=== PATIENT | female | born 1945 | race Two or more races ===

== ENCOUNTER 2017-02-10 16:38 | Inpatient (IN) | payer MEDICARE, MEDICAID ==
[~2017-02-10] VITALS: Ht 167.6 cm; Wt 54.0 kg
[~2017-02-10 16:38] MED LIST: ACET-868 PO; ACET325T53 PO; ALBU2.5V38 IH; AMAN100T PO; CITA10TA17 PO; CRAN425C PO; DIVA125C PO; HALO1TAB5 PO; HYDR-552 PO; LORA0.5T PO; MAG30ORA PO; MAGN400O6 PO; MELA3TAB11 PO; MIDO5TAB PO; MULT1TAB11 PO; NA P133E RC
--- NOTE | 2017-02-10 17:00 | NUR ---
PT BIB PA FOR ABNORMAL LABS SENT BY PMD. NAD NOTED. VSS. PULSE OX 90% ON ROOM AIR; PLACED ON 2L VIA NC. NAD NOTED. AT BASELINE LOC PER REPORT. WITHDRAWS FROM PAIN. SKIN WARM NONDIAPHORETIC. IN ER BED 09 ON MONITOR.
[2017-02-10 17:45] LABS: BASOPHILS # (AUTO) 0.5 /CMM (0.0-0.2); BASOPHILS % (AUTO) 1.9 % (0.0-2.0); EOSINOPHILS # (AUTO) 0.1 /CMM (0.0-0.7); EOSINOPHILS % (AUTO) 0.5 % (0.0-6.0); HEMATOCRIT 51 % (33-45); HEMOGLOBIN 15.6 g/dL (11.5-14.8); LYMPHOCYTES # (AUTO) 2.7 /CMM (0.8-4.8); MEAN CORPUSCULAR HEMOGLOBIN 31 PG (26.0-33.0); MEAN CORPUSCULAR HGB CONC 31 g/dl (31.0-36.0); MEAN CORPUSCULAR VOLUME 102 fL (82-100); MONOCYTES # (AUTO) 1.3 /CMM (0.1-1.30); MONOCYTES % (AUTO) 5.6 % (2.0-12.0); NEUTROPHILS # (AUTO) 19.5 /CMM (1.8-8.9); PLATELET COUNT (AUTO) 113 /CMM (150-450); RDW COEFFICIENT OF VARIATION 13.5 (11.5-15.0); RED BLOOD CELL COUNT(AUTO) 4.97 MIL/uL (4.0-5.2); WHITE BLOOD COUNT (AUTO) 24.1 K/uL (4.3-11.0)
[2017-02-10 17:56] LABS: MAGNESIUM 3.3 mg/dL (1.8-2.4)
[2017-02-10 17:59] LABS: INR 1.22 (0.87-1.13); PROTHROMBIN TIME 12.8 SECS (9.5-12.7)
[2017-02-10] MEDS ORDERED: PIPERACILLIN /TAZOBACTAM 2.25 G in IV D5W 50 ML IV ONE (18:00)
[2017-02-10] MEDS ORDERED: VANCOMYCIN 1 GM in IV D5W 250 ML IV ONE (18:00)
[2017-02-10 18:03] LABS: ALANINE AMINOTRANSFERASE 26 U/L (12-78); ALBUMIN 3.1 g/dL (3.4-5.0); ALKALINE PHOSPHATASE 141 U/L (46-116); ASPARTATE AMINOTRANSFERASE 17 U/L (15-37); BILIRUBIN,DIRECT 0.1 mg/dL (0.0-0.2); BILIRUBIN,TOTAL 0.2 mg/dL (0.2-1.0); CALCIUM, SERUM 9.8 mg/dL (8.5-10.1); CARBON DIOXIDE 32 mmol/L (21-32); GFR 11 mL/min (>60); GLUCOSE 168 mg/dL (74-106); POTASSIUM 4.3 mmol/L (3.5-5.1); TOTAL PROTEIN, SERUM 8.6 g/dL (6.4-8.2)
--- NOTE | 2017-02-10 18:03 | NUR ---
CALLED NURSING SUP. FOR TELE BED
[2017-02-10 18:04] LABS: TROPONIN I 0.046 ng/mL (0.00-0.056)
[2017-02-10] MEDS ORDERED: IV SET PRIMARY PUMP SET 1 EA INFUS.SET MC ONE ×2 (18:09→21:37)
[2017-02-10] MEDS ORDERED: PIPERACILLIN /TAZOBACTAM 3.375 G VIAL IV ONE (18:09)
[2017-02-10] MEDS ORDERED: VANCOMYCIN 1 GM VIAL ONE (18:10)
[2017-02-10 18:18] LABS: SODIUM SERUM 175 mmol/L (136-145)
[2017-02-10 18:20] LABS: CHLORIDE 134 mmol/L (98-107); UREA NITROGEN, BLOOD 120 mg/dL (7-18)
[2017-02-10 18:25] LABS: APPEARANCE,URINE Slightly Cloudy (CLEAR); BILIRUBIN,URINE Negative (NEGATIVE); BLOOD, URINE Trace-lysed Ery/uL (NEGATIVE); COLOR,URINE Yellow (YELLOW); KETONES,URINE Negative (NEGATIVE); LEUKOCYTE ESTERASE ,URINE Trace (NEGATIVE); NITRITE, URINE Negative (NEGATIVE); PROTEIN,URINE 30 mg/dl (NEGATIVE); UGLUCOSE Negative (NEGATIVE); UROBILINOGEN,URINE 0.2 EU/dL (0.2)
[2017-02-10] MEDS ORDERED: IV NS 0.9% 1,000 ML BAG IV ONE (18:30)
--- NOTE | 2017-02-10 18:33 | NUR ---
GIORGI PAGED, TOWNSHIP SUPERVISOR
[2017-02-10 18:41] LABS: ADD URINE CULTURE YES; BACTERIA,URINE Many /HPF (None Seen); SQUAMOUS EPITHELIAL CELL,UR Moderate /HPF (None Seen); URINE AMORPHOUS URATE Many /HPF (None Seen)
--- NOTE | 2017-02-10 18:44 | NUR ---
REPORT CALLED TO SANJAY FOR ADMISSION
--- NOTE | 2017-02-10 18:47 | NUR ---
[facility] REPAGED
--- NOTE | 2017-02-10 18:57 | NUR ---
panel on-call paged
[2017-02-10 19:02] LABS: BAND % (MANUAL) 3 % (0.0-5.0); LYMPHOCYTES % (MANUAL) 13 % (16-48); NEUTROPHILS % (MANUAL) 78 (42-76)
[2017-02-10 19:03] LABS: BASOPHILS % (MANUAL) 0 % (0.0-2.0); EOSINOPHILS % (MANUAL) 0 % (0-4); MONOCYTES % (MANUAL) 6 % (0-11.0); PLATELET ESTIMATE DECREASED
[2017-02-10] MEDS ORDERED: IV SET PRIMARY 1 EA INFUS.SET MC ONE (19:18)
[2017-02-10] MEDS ORDERED: IV NS 0.9% 2,000 ML ONE (19:18)
[2017-02-10] MEDS ORDERED: IV NS 0.9% 1,000 ML IV PRN (20:10)
--- NOTE | 2017-02-10 20:12 | NUR ---
PT TRANSPORTED TO 323-2 IN STABLE CONDITION VIA ACLS PROTOCOL WITH IVF BOLUS ONGOING. NAD NOTED.
[2017-02-10] MEDS ORDERED: Z GUARD REMEDY 2 OZ OINT TP PRN (20:30)
[2017-02-10] MEDS ORDERED: NA PHOS,M-B/NA PHOS,DI-BA 1 EA ENEMA RC PRN (20:30)
[2017-02-10] MEDS ORDERED: IV NS 0.9% 500 ML IV ONE (20:30)
[2017-02-10] MEDS ORDERED: HYDROCODONE/APAP 5/325MG 1 EACH TABLET PO PRN (20:30)
[2017-02-10] MEDS ORDERED: MAGNESIUM HYDROXIDE 30 ML UDC PO PRN ×2 (20:30)
[2017-02-10] MEDS ORDERED: LORAZEPAM 0.5 MG TABLET PO PRN (20:30)
[2017-02-10] MEDS ORDERED: MAG HYDROX/AL HYDROX/SIMETH 30 ML UDC PO PRN ×2 (20:30)
[2017-02-10] MEDS ORDERED: ACETAMINOPHEN 325 MG TABLET PO PRN (20:30)
[2017-02-10] MEDS ORDERED: ONDANSETRON HCL/PF 4 MG/2 ML VIAL IVP PRN (20:30)
[2017-02-10] MEDS ORDERED: ALBUTEROL FS 2.5 MG/3 ML VIAL.NEB IH PRN (20:30)
--- NOTE | 2017-02-10 20:45 | NUR ---
PT NOTED VERY LETHARGIC RESPOND TO PAIN ONLY (STERNUM RUB), ON TELE MONITOR SINUS RHYTHM IN READING. MOTTLED SKIN NOTED. ON OXYGEN AT 2LPM VIA NC. PT O2 SATURATION RANGES FROM 76 TO 95%. CALLED FRANCISCA, NOTIFIED FRANCISCA AND OKAYED TO TRANSFER PT TO [facility]. NOTED AND CARRIED OUT.
[2017-02-10] MEDS ORDERED: FEE PK DOSING 1 MIN EA MC ONE (20:49)
[2017-02-10 21:00] VITALS: BP 115/43
[2017-02-10 21:30] VITALS: BP 99/46
[2017-02-10] MEDS ORDERED: IV 1/2NS 1000 ML 1,000 ML IV ONE ×2 (21:30→21:36)
--- NOTE | 2017-02-10 21:30 | NUR ---
CORRECTIVE AND MANUAL ARTS THERAPIST NOTES RECEIVED PATIENT FROM 3W VIA HOSPITAL BED. PATIENT LETHARGIC, RESPONSIVE TO PAINFUL STIMULI, GRUNTING, NO VERBAL COMMUNICATION ESTABLISHED. BREATHING EVEN AND NONLABORED, ON O2 VIA NC @ 2LPM, TOLERATING WELL, FREE FROM ANY S/S OF RESPIRATORY DISTRESS. PLACED ON TELEMETRY MONITORING, REVEALING SINUS RHYTHM, HR = 78. IV LEFT AND RIGHT AC, PATENT AND INTACT, FLUSHED WITH NS, FREE FROM ANY S/S OF INFILTRATION OR PHLEBITIS. SKIN ISSUES PHOTOGRAPHED AND DOCUMENTED PER PROTOCOL. CALL LIGHT LEFT WITHIN EASY REACH, BE DIN LOWEST AND LOCKED POSITION. WILL CONTINUE TO CLOSELY MONITOR
--- NOTE | 2017-02-10 21:30 | NUR ---
PT TRANSPORTED TO [facility] AND GAVE REPORT TO ROSANNA JACOB
[2017-02-10] MEDS ORDERED: SECONDARY IV SET 1 EA INFUS.SET MC ONE (21:37)
[2017-02-10 21:49] LABS: SODIUM SERUM 176 mmol/L (136-145)
[2017-02-10 21:57] LABS: URINE SODIUM, RANDOM 12 mmol/l (40-220)
[2017-02-11] VITALS: BP 95/77
[2017-02-11] MEDS ORDERED: PIPERACILLIN /TAZOBACTAM 3.375 G in IV D5W 50 ML IV SCH ×2
--- NOTE | 2017-02-11 00:19 | NUR ---
RN NOTES PATIENT IS LETHARGIC, UNABLE TO SWALLOW MEDICATION AT THIS TIME. SPOKE TO FRANCISCA JOHNSON WATERMASTER TO NOTIFY REGARDING INABILITY TO SAFELY SWALLOW. PER FRANCISCA SABA, CHANGE TYLENOL PO 650 MG TO TYLENOL SUPPOSITORY Q6H PRN. ORDER READ BACK FOR CLARIFICATION. WILL CARRY OUT ALL NEW ORDERS
[2017-02-11] MEDS ORDERED: ACETAMINOPHEN 650 MG/SUPP.RECT RC PRN (00:30)
[2017-02-11] MEDS: PIPERACILLIN /TAZOBACTAM 2.25 G in IV D5W 50 ML IV SCH ×2 (02:05→09:20)
[2017-02-11 04:00] VITALS: BP_SYST 146; BP_DIAS 64; BP_DIAS 77
[2017-02-11 06:45] LABS: EOSINOPHILS # (AUTO) 0.1 /CMM (0.0-0.7); EOSINOPHILS % (AUTO) 0.5 % (0.0-6.0); HEMATOCRIT 37 % (33-45); HEMOGLOBIN 11.7 g/dL (11.5-14.8); LYMPHOCYTES % (AUTO) 10.8 % (20.0-44.0); MEAN CORPUSCULAR HEMOGLOBIN 32 PG (26.0-33.0); MEAN CORPUSCULAR HGB CONC 32 g/dl (31.0-36.0); MEAN CORPUSCULAR VOLUME 101 fL (82-100); MONOCYTES # (AUTO) 1.5 /CMM (0.1-1.30); MONOCYTES % (AUTO) 5.4 % (2.0-12.0); NEUTROPHILS # (AUTO) 22.7 /CMM (1.8-8.9); NEUTROPHILS % (AUTO) 83.3 % (43.0-81.0); PLATELET COUNT (AUTO) 95 /CMM (150-450); RDW COEFFICIENT OF VARIATION 14.6 (11.5-15.0); RED BLOOD CELL COUNT(AUTO) 3.67 MIL/uL (4.0-5.2); WHITE BLOOD COUNT (AUTO) 27.3 K/uL (4.3-11.0)
--- NOTE | 2017-02-11 07:00 | NUR ---
RN CLOSING NOTES PATIENT RESTING IN BED, IVF ONGOING PRESCRIBED. WILL ENDORSE THE PATIENT TO THE AM SHIFT NURSE FOR BRYSON
[2017-02-11 07:07] LABS: THYROID STIMULATING HORMONE 0.704 uIU/mL (0.358-3.74)
[2017-02-11 07:22] LABS: CALCIUM, SERUM 8.3 mg/dL (8.5-10.1); CREATININE 3.1 mg/dL (0.6-1.3); MAGNESIUM 2.4 mg/dL (1.8-2.4); PHOSPHORUS 3.6 mg/dL (2.5-4.9); POTASSIUM 3.8 mmol/L (3.5-5.1)
--- NOTE | 2017-02-11 07:25 | NUR ---
RN INITIAL NOTES PT IN BED, LETHARGIC, ONLY SHOWS FACIAL GRIMACING WHEN STERNAL RUB DONE. HOB ELEVATED 35 DEGREES, ON NC 2L, TOLERATING WELL, NO SOB. ON TELE MONITOR WITH SR 74, NO SIGNS OF DISCOMFORT NOTED. PT IS FEBRILE WITH 100, WILL APPLY COOLING MEASURES AND RECHECK; IF STILL HIGH WILL ADMINISTER TYLENOL. PT HAS HOLM CATHETER DRAINING WELL, NO LEAKAGE/CLOG. REFER TO PTS CHART REGARDING SKIN. PT IS NPO D/T LETHARGIC STATE. IV ON RAC 18G RUNNING 1/2 NS @ 75 CC/HR, NO SIGNS OF INFECTION/INFILTRATION. CALL LIGHT WITHIN EASY REACH, SAFETY MEASURES MAINTAINED, WILL CONTINUE TO MONITOR AND FOLLOW MD ORDERS. PT IN OVERALL STABLE CONDITION.
[2017-02-11 08:00] VITALS: BP 93/41
[2017-02-11 08:16] LABS: ANISOCYTOSIS 1+; BAND % (MANUAL) 6 % (0.0-5.0); EOSINOPHILS % (MANUAL) 1 % (0-4); LYMPHOCYTES % (MANUAL) 8 % (16-48); MONOCYTES % (MANUAL) 7 % (0-11.0); NEUTROPHILS % (MANUAL) 78 (42-76); PLATELET ESTIMATE DECREASED
[2017-02-11] MEDS: PANTOPRAZOLE 40 MG VIAL IV SCH (08:49)
[2017-02-11] MEDS: AMANTADINE HCL 100 MG CAPSULE PO SCH ×2 (08:50→16:14)
[2017-02-11] MEDS: CITALOPRAM HYDROBROMIDE 10 MG TABLET PO SCH (08:50)
[2017-02-11] MEDS: DIVALPROEX SODIUM 125 MG CAP.SPRINK PO SCH ×2 (08:50→16:13)
[2017-02-11] MEDS: HALOPERIDOL 1 MG TABLET PO SCH ×2 (08:50→16:13)
[2017-02-11] MEDS: MIDODRINE HCL (5MG) 5 MG TABLET PO SCH ×2 (08:50→16:13)
[2017-02-11 12:00] VITALS: BP 84/37
[2017-02-11] MEDS: IV 1/2NS 1000 ML 1,000 ML IV PRN ×2 (12:45→21:22)
[2017-02-11 13:30] LABS: APPEARANCE,URINE CLOUDY (CLEAR); BILIRUBIN,URINE NEGATIVE (NEGATIVE); BLOOD, URINE 2+ Ery/uL (NEGATIVE); COLOR,URINE YELLOW (YELLOW); KETONES,URINE NEGATIVE (NEGATIVE); LEUKOCYTE ESTERASE ,URINE 2+ (NEGATIVE); NITRITE, URINE NEGATIVE (NEGATIVE); PH,URINE 5.5 (5.0-8.0); PROTEIN,URINE TRACE mg/dl (NEGATIVE); UGLUCOSE NEGATIVE (NEGATIVE); UROBILINOGEN,URINE 0.2 EU/dL (0.2)
[2017-02-11 13:48] LABS: URINE TOTAL PROTEIN 78.8 mg/dL (0-11.9)
[2017-02-11 14:32] LABS: ADD URINE CULTURE YES; BACTERIA,URINE Few /HPF (None Seen); SQUAMOUS EPITHELIAL CELL,UR Rare /HPF (None Seen)
[2017-02-11 15:05] LABS: EOSINOPHIL,URINE None Seen
--- NOTE | 2017-02-11 15:13 | NUR ---
RN NOTES MD AWARE OF PTS URINE OSMOLALITY. NO NEW ORDERS. PT IN STABLE CONDITION, AT BEDSIDE. PT WAS SEEN BY MD EARLIER TODAY.
[2017-02-11 16:00] VITALS: BP 96/48
[2017-02-11] MEDS ORDERED: SECONDARY IV SET 1 EA INFUS.SET MC ONE (16:05)
[2017-02-11] MEDS: MEROPENEM 500 MG in IV NS 0.9% 50 ML IV SCH (16:12)
--- NOTE | 2017-02-11 19:05 | NUR ---
RN CLOSING NOTES PT IN BED, LETHARGIC, NO SUDDEN CHANGES DURING MY SHIFT, TMAX 100 IN AM, NOW 98, AFEBRILE. SBP IN LOW 90'S. IV'S CDI, NO SIGNS OF INFECTION/INFILTRATION NOTED. HOLM CATH DRAINING WELL, CLEAR YELLOW URINE. TOLERATING NC 2L WELL, NO SOB. CALL LIGHT WITHIN EASY REACH, SAFETY MEASURES MAINTAINED, REPORT GIVEN FOR BRYSON.
[2017-02-11 20:00] VITALS: BP 100/35
--- NOTE | 2017-02-11 20:00 | NUR ---
Received patient lethargic open eyes when name called.Non verbal.No acute distress noted.VS stable. SR per tele monitoring.With O2 2L/min NC saturation 100% respiration even and unlabored.Patient on npo status.NA+ level elevated 175.With ongoing hydration 1/2 NS infusing to RAC site intact.FC draining clear yellow urine and will notify MD if UO > 100 ml/hr.Turned and repositioned to comfort.Safety measures observed.
--- NOTE | 2017-02-11 22:00 | NUR ---
Patient pm lab resulted.NA+ level 174.SUPPLIER QUALITY MANAGERSavannah here and notified of above result.No new orders received.
[2017-02-12] VITALS: BP 90/41
[2017-02-12 04:00] VITALS: BP 96/35
[2017-02-12] MEDS ORDERED: SECONDARY IV SET 1 EA INFUS.SET MC ONE ×2 (04:10→15:18)
[2017-02-12] MEDS: MEROPENEM 500 MG in IV NS 0.9% 50 ML IV SCH ×2 (04:10→15:19)
[2017-02-12] MEDS ORDERED: VANCOMYCIN 0.75 GM in IV D5W 250 ML IV SCH (06:00)
[2017-02-12] MEDS: IV 1/2NS 1000 ML 1,000 ML IV PRN (06:02)
[2017-02-12 06:32] LABS: BASOPHILS # (AUTO) 0.1 /CMM (0.0-0.2); BASOPHILS % (AUTO) 0.3 % (0.0-2.0); EOSINOPHILS # (AUTO) 0.2 /CMM (0.0-0.7); EOSINOPHILS % (AUTO) 1.1 % (0.0-6.0); HEMATOCRIT 32 % (33-45); HEMOGLOBIN 10.4 g/dL (11.5-14.8); LYMPHOCYTES # (AUTO) 2.1 /CMM (0.8-4.8); LYMPHOCYTES % (AUTO) 9.6 % (20.0-44.0); MEAN CORPUSCULAR HEMOGLOBIN 33 PG (26.0-33.0); MEAN CORPUSCULAR HGB CONC 32 g/dl (31.0-36.0); MEAN CORPUSCULAR VOLUME 101 fL (82-100); MONOCYTES # (AUTO) 1.4 /CMM (0.1-1.30); MONOCYTES % (AUTO) 6.3 % (2.0-12.0); NEUTROPHILS # (AUTO) 17.7 /CMM (1.8-8.9); NEUTROPHILS % (AUTO) 82.7 % (43.0-81.0); PLATELET COUNT (AUTO) 75 /CMM (150-450); RDW COEFFICIENT OF VARIATION 14.4 (11.5-15.0); WHITE BLOOD COUNT (AUTO) 21.4 K/uL (4.3-11.0)
[2017-02-12 06:35] LABS: APPEARANCE,URINE SL CLOUDY (CLEAR); BILIRUBIN,URINE NEGATIVE (NEGATIVE); BLOOD, URINE 3+ Ery/uL (NEGATIVE); COLOR,URINE YELLOW (YELLOW); KETONES,URINE NEGATIVE (NEGATIVE); LEUKOCYTE ESTERASE ,URINE 1+ (NEGATIVE); NITRITE, URINE NEGATIVE (NEGATIVE); PH,URINE 5.5 (5.0-8.0); PROTEIN,URINE 1+ mg/dl (NEGATIVE); UGLUCOSE NEGATIVE (NEGATIVE); UROBILINOGEN,URINE 0.2 EU/dL (0.2)
[2017-02-12 06:43] LABS: ALBUMIN 1.9 g/dL (3.4-5.0); BILIRUBIN,TOTAL 0.3 mg/dL (0.2-1.0); CALCIUM, SERUM 8.1 mg/dL (8.5-10.1); CREATININE 2.5 mg/dL (0.6-1.3); MAGNESIUM 2.4 mg/dL (1.8-2.4); PHOSPHORUS 3.5 mg/dL (2.5-4.9); POTASSIUM 3.6 mmol/L (3.5-5.1); TOTAL PROTEIN, SERUM 5.7 g/dL (6.4-8.2)
--- NOTE | 2017-02-12 06:54 | NUR ---
Patient resting appears comfortable.VS stable.SR.No nausea or vomiting noted.Remains NPO with ivf infusing well.AM care done.BM x 2.Urine output monitored.Total UO 500 ml in 12 hrs.All due medications administered.Turned and repositioned.Lab just called RE:NA+ 174 and CL 137.Will endorse to AM shift RN for continuity of care.Specimen for ua and other urine test collected and sent to lab.
--- NOTE | 2017-02-12 07:18 | NUR ---
RN INITIAL NOTES: Rec'd pt asleep on bed, not in any distress, lethargic, arouses by calling name & light touch. Pt on O2 at 2lpm/NC, saturating at 98%. On telemonitor, SR w/ HR 61. Pt has FC patent & intact draining to adequate urine output, will observe strict I/O as ordered. Pt has R AC G18 PL patent & intact w/ /2 NS 1L at 125 cc/hr infusing well. Has L AC G18, SL, flushed, no signs of infection/ infiltration noted. Pt kept on NPO due to lethargic condition. Will turn, reposition & offload heels as per protocol. Will continue to monitor.
[2017-02-12 07:32] LABS: CREATININE, URINE 64.5 MG/DL (30.0-125.0)
[2017-02-12 08:00] VITALS: BP 94/36
[2017-02-12 08:37] LABS: ADD URINE CULTURE YES; BACTERIA,URINE Few /HPF (None Seen); SQUAMOUS EPITHELIAL CELL,UR Few /HPF (None Seen)
[2017-02-12] MEDS: PANTOPRAZOLE 40 MG VIAL IV SCH (08:42)
[2017-02-12 08:44] LABS: EOSINOPHIL,URINE None Seen
[2017-02-12] MEDS: MIDODRINE HCL (5MG) 5 MG TABLET PO SCH ×2 (09:00→17:00)
[2017-02-12] MEDS: CITALOPRAM HYDROBROMIDE 10 MG TABLET PO SCH (09:00)
[2017-02-12] MEDS: DIVALPROEX SODIUM 125 MG CAP.SPRINK PO SCH ×2 (09:00→17:00)
[2017-02-12] MEDS: HALOPERIDOL 1 MG TABLET PO SCH ×2 (09:00→17:00)
[2017-02-12] MEDS: AMANTADINE HCL 100 MG CAPSULE PO SCH ×2 (09:00→17:00)
[2017-02-12 09:13] LABS: BAND % (MANUAL) 1 % (0.0-5.0); EOSINOPHILS % (MANUAL) 2 % (0-4); LYMPHOCYTES % (MANUAL) 8 % (16-48); MONOCYTES % (MANUAL) 5 % (0-11.0); NEUTROPHILS % (MANUAL) 84 (42-76); PLATELET ESTIMATE DECREASED
--- NOTE | 2017-02-12 11:00 | NUR ---
RN NOTES: Pt seen & examined by Dr. Pagan w/ orders to do swallow eval.
[2017-02-12 12:00] VITALS: BP 96/45
--- NOTE | 2017-02-12 13:00 | NUR ---
RN NOTES: Swallow eval done. As per therapist, pt keeps on coughing on clear liquid as pt is not fully awake. Pt was tried on pureed diet able to tolerate but to sleepy. As per therapist, will re eval janey. made aware.
[2017-02-12] MEDS ORDERED: IV D5W 1,000 ML IV ONE (15:00)
--- NOTE | 2017-02-12 15:00 | NUR ---
RN NOTES: Dr. Gordillo made aware of swallow eval result (failed) and re-eval ajney. MD review pt's meds (PO), okay to be NPO including meds for now and will see result of re-eval janey.
[2017-02-12 16:00] VITALS: BP 96/34
[2017-02-12] MEDS: LACTOBACILLUS RHAMNOSUS GG 1 EACH CAP.SPRINK PO SCH (17:00)
--- NOTE | 2017-02-12 19:30 | NUR ---
DRESSER TENDER INITIAL NOTES RECEIVED PATIENT, AWAKE, LETHARGIC, NON-VERBAL. NO S/S OF PAIN OR DISCOMFORT. RESPIRATIONS EVEN AND UNLABORED, WITH 2LPMO2 VIA NC. SKIN WARM AND DRY TO TOUCH. ON TELE MONITOR SINUS LUDY 55. WITH F/C PATENT AND INTACT, DRAINING CLEAR, YELLOW OUTPUT. WITH IVF RUNNING. TURNED AND REPOSITIONED. SIDE RAILS UP AND LOCKED. BED KEPT AT LOWEST POSITION. CALL LIGHT KEPT WITHIN EASY REACH. WILL CONTINUE TO MONITOR.
--- NOTE | 2017-02-12 19:42 | NUR ---
RN CLOSING NOTES: No acute changes noted w/in shift. Pt on O2 at 2lpm/NC, saturating at 98%. On telemonitor, still SR w/ HR 58. FC kept patent & intact, observed strict I/O as ordered. R AC G18 removed, applied pressure. L AC G18, kept patent & intact w/ no signs of infection/ infiltration w/ D5W 1L x 150 cc/hr infusing well. Kept on NPO including meds as ordered due to lethargic condition. Turned, repositioned & offloaded heels. Endorsed to PM RN for BRYSON.
[2017-02-12 20:00] VITALS: BP 106/38
[2017-02-13] VITALS: BP 93/32
[2017-02-13] MEDS ORDERED: IV SET PRIMARY PUMP SET 1 EA INFUS.SET MC ONE (03:54)
[2017-02-13 04:00] VITALS: BP 94/31
[2017-02-13] MEDS: MEROPENEM 500 MG in IV NS 0.9% 50 ML IV SCH ×2 (04:00→15:16)
[2017-02-13 06:43] LABS: BASOPHILS % (AUTO) 0.2 % (0.0-2.0); EOSINOPHILS # (AUTO) 0.4 /CMM (0.0-0.7); EOSINOPHILS % (AUTO) 2.6 % (0.0-6.0); HEMATOCRIT 29 % (33-45); HEMOGLOBIN 9.4 g/dL (11.5-14.8); LYMPHOCYTES # (AUTO) 1.6 /CMM (0.8-4.8); LYMPHOCYTES % (AUTO) 11.5 % (20.0-44.0); MEAN CORPUSCULAR HEMOGLOBIN 32 PG (26.0-33.0); MEAN CORPUSCULAR HGB CONC 32 g/dl (31.0-36.0); MEAN CORPUSCULAR VOLUME 100 fL (82-100); MONOCYTES % (AUTO) 7.3 % (2.0-12.0); NEUTROPHILS # (AUTO) 11.2 /CMM (1.8-8.9); NEUTROPHILS % (AUTO) 78.4 % (43.0-81.0); PLATELET COUNT (AUTO) 66 /CMM (150-450); RDW COEFFICIENT OF VARIATION 14.4 (11.5-15.0); RED BLOOD CELL COUNT(AUTO) 2.91 MIL/uL (4.0-5.2); WHITE BLOOD COUNT (AUTO) 14.2 K/uL (4.3-11.0)
[2017-02-13 07:20] LABS: ALBUMIN 1.8 g/dL (3.4-5.0); BILIRUBIN,TOTAL 0.4 mg/dL (0.2-1.0); CALCIUM, SERUM 8.4 mg/dL (8.5-10.1); MAGNESIUM 2.3 mg/dL (1.8-2.4); PHOSPHORUS 2.6 mg/dL (2.5-4.9); POTASSIUM 3.5 mmol/L (3.5-5.1); TOTAL PROTEIN, SERUM 5.5 g/dL (6.4-8.2)
--- NOTE | 2017-02-13 07:30 | NUR ---
RN AM NOTES PT IN BED, AWAKE, ORIENTED X 1, BUT FLAT AFFECT, ON 2L O2 NC, NAD, NO SOB, RESPIRATION UNLABORED. TELEMETRY READS SR HR 62 , NO SIGN OF PAIN, NO GRIMACING. LFA 20G FLUSHES WELL, SITE CLEAR. NPO FOR NOW. HOLM CATH IN PLACE WITH ADEQUATE AMOUNT YELLOW COLORED URINE. SEE NURSING FLOWSHEET FOR SKIN ISSUES. FOR SWALLOW EVAL TODAY. SAFETY MEASURES ENSURED. CALL LIGHT WITHIN REACH. WILL MONITOR ACCORDINGLY.
--- NOTE | 2017-02-13 07:36 | NUR ---
JOB COST ESTIMATOR CLOSING NOTES NO SIGNIFICANT CHANGES OVERNIGHT. NO RESPIRATORY DISTRESS NOTED. KEPT CLEAN AND DRY. TURNED AND REPOSITIONED Q2 AND PRN. AFEBRILE. SIDE RAILS UP AND LOCKED. BED KEPT AT LOWEST POSITION. CALL LIGHT KEPT WITHIN EASY REACH. CONTINUITY OF CARE ENDORSED TO AM NURSE.
[2017-02-13 08:00] VITALS: BP 98/31
[2017-02-13] MEDS ORDERED: VANCOMYCIN 500 MG in IV D5W 100 ML IV SCH (08:00)
[2017-02-13] MEDS: HALOPERIDOL 1 MG TABLET PO SCH ×2 (08:52→16:45)
[2017-02-13] MEDS: LACTOBACILLUS RHAMNOSUS GG 1 EACH CAP.SPRINK PO SCH ×2 (08:52→16:44)
[2017-02-13] MEDS: MIDODRINE HCL (5MG) 5 MG TABLET PO SCH ×2 (08:52→16:45)
[2017-02-13] MEDS: DIVALPROEX SODIUM 125 MG CAP.SPRINK PO SCH ×2 (08:52→16:44)
[2017-02-13] MEDS: CITALOPRAM HYDROBROMIDE 10 MG TABLET PO SCH (08:52)
[2017-02-13] MEDS: PANTOPRAZOLE 40 MG VIAL IV SCH (08:52)
[2017-02-13] MEDS: AMANTADINE HCL 100 MG CAPSULE PO SCH ×2 (08:53→16:45)
--- NOTE | 2017-02-13 09:30 | NUR ---
RN NOTES ADMINISTERED IV MEDS ONLY. NO ORAL MEDS GIVEN. NPO
[2017-02-13 11:11] LABS: PTH, INTACT 76 pg/mL (15-65)
--- NOTE | 2017-02-13 11:27 | NUR ---
RN AM NOTES PT IN BED, AWAKE, ORIENTED X 1, BUT FLAT AFFECT, ON 2L O2 NC, NAD, NO SOB, RESPIRATION UNLABORED. TELEMETRY READS SR HR 62 , NO SIGN OF PAIN, NO GRIMACING. LFA 20G FLUSHES WELL, SITE CLEAR. NPO FOR NOW. HOLM CATH IN PLACE WITH ADEQUATE AMOUNT YELLOW COLORED URINE. SEE NURSING FLOWSHEET FOR SKIN ISSUES. FOR SWALLOW EVAL TODAY. SAFETY MEASURES ENSURED. CALL LIGHT WITHIN REACH. WILL MONITOR ACCORDINGLY. Addendum: 02/13/17 at 1132 by SHAHRAM RODRIGUEZ RN CORRECTION TO TIME SHOULD BE 0730
[2017-02-13 12:00] VITALS: BP 91/38
--- NOTE | 2017-02-13 14:00 | NUR ---
RN NOTES PATIENT SEEN BY DR. DUMAS AND DR. EMMANUEL EARLIER. WILL CONTINUE WITH AGGRESSIVE FLUIDS ORDERED.
[2017-02-13] MEDS: IV D5W 1,000 ML IV PRN (14:05)
[2017-02-13 14:31] LABS: BAND % (MANUAL) 4 % (0.0-5.0); EOSINOPHILS % (MANUAL) 2 % (0-4); LYMPHOCYTES % (MANUAL) 9 % (16-48); MONOCYTES % (MANUAL) 5 % (0-11.0); NEUTROPHILS % (MANUAL) 80 (42-76); PLATELET ESTIMATE DECREASED
[2017-02-13 14:32] LABS: ANISOCYTOSIS 1+
[2017-02-13] MEDS ORDERED: SECONDARY IV SET 1 EA INFUS.SET MC ONE (14:59)
--- NOTE | 2017-02-13 15:16 | NUR ---
RN NOTES STARTED GERARDO BARRIGA.
[2017-02-13 16:00] VITALS: BP_SYST 95; BP_DIAS 30; BP_DIAS 36
--- NOTE | 2017-02-13 18:56 | NUR ---
RN CLOSING NOTES PT RESTING IN BED, ALOX 1, VERBAL BUT WITH INCOHERENT WORDS, NOT ANY DISTRESS, NO SOB, ON O2 VIA NC AT 2LPM TOLERATED WELL. NO SIGNS OF PAIN. IV ACCESS ON LFA G20 WITH D5W AT 150 ML/HR RUNNING, SITE CLEAR. FC INTACT AND PATENT, WITH 500 ML OUTPUT. STILL NPO, FAILED SWALLOW EVAL EARLIER. SAFETY MEASURES ENSURED. CALL LIGHT WITHIN REACH. ALL NEEDS ATTENDED. PM CARE DONE, TURNED AND REPOSITIONED Q2H. WILL ENDORSE5 TO NEXT SHIFT FOR BRYSON.
[2017-02-13 20:00] VITALS: BP_SYST 83; BP_SYST 92; BP_DIAS 29; BP_DIAS 44
--- NOTE | 2017-02-13 20:00 | NUR ---
RN NOTES RECEIVED PT IN BED AWAKE ABLE TRYING TO VERBALIZE WORDS, NOT CLEAR, ON IV FLUIDS AT THIS TIME, NO SIGN OF SOB OR PAIN NOTED,KEPT CLEAN AND DRY WITH HOB ELEVATED.
--- NOTE | 2017-02-13 20:35 | NUR ---
DIGITAL PHOTOGRAPHIC PRINTER NOTES INFORMED WANDY ESPINOSA REGARDING PATIENT BP 83/29, PATIENT ASYMPTOMATIC. WITH INSTRUCTIONS TO RECHECK AFTER 15MINS AND INFORM HIM. WILL CONTINUE TO MONITOR.
--- NOTE | 2017-02-13 21:03 | NUR ---
RN NOTES PT WITH ORDER TO MONITOR URINE O/P>THAN 100,BP 92/44 55 FRANCISCA FROM [facility] NOTIFIED, WILL CONT TO MONITOR.
[2017-02-14] VITALS: BP 100/37
[2017-02-14] MEDS: IV D5W 1,000 ML IV PRN ×3 (02:27→23:50)
[2017-02-14 04:00] VITALS: BP 97/32
[2017-02-14] MEDS: MEROPENEM 500 MG in IV NS 0.9% 50 ML IV SCH ×2 (04:13→15:13)
[2017-02-14 07:58] LABS: BASOPHILS % (AUTO) 0.2 % (0.0-2.0); EOSINOPHILS # (AUTO) 0.2 /CMM (0.0-0.7); EOSINOPHILS % (AUTO) 2.4 % (0.0-6.0); HEMATOCRIT 29 % (33-45); HEMOGLOBIN 9.4 g/dL (11.5-14.8); LYMPHOCYTES # (AUTO) 1.3 /CMM (0.8-4.8); LYMPHOCYTES % (AUTO) 12.6 % (20.0-44.0); MEAN CORPUSCULAR HEMOGLOBIN 32 PG (26.0-33.0); MEAN CORPUSCULAR HGB CONC 32 g/dl (31.0-36.0); MEAN CORPUSCULAR VOLUME 101 fL (82-100); MONOCYTES # (AUTO) 0.8 /CMM (0.1-1.30); MONOCYTES % (AUTO) 8.3 % (2.0-12.0); NEUTROPHILS # (AUTO) 7.8 /CMM (1.8-8.9); NEUTROPHILS % (AUTO) 76.5 % (43.0-81.0); PLATELET COUNT (AUTO) 77 /CMM (150-450); RDW COEFFICIENT OF VARIATION 14.4 (11.5-15.0); RED BLOOD CELL COUNT(AUTO) 2.91 MIL/uL (4.0-5.2); WHITE BLOOD COUNT (AUTO) 10.3 K/uL (4.3-11.0)
--- NOTE | 2017-02-14 07:58 | NUR ---
CNC PROGRAMMER CLOSING NOTES NO SIGNIFICANT CHANGES OVERNIGHT. NO RESPIRATORY DISTRESS NOTED. AFEBRILE. ALL NEEDS ANTICIPATED AND MET. IVF DRAINING. URINE OUTPUT MONITORED/HR. IVF RUNNING. KEPT CLEAN AND DRY. TURNED AND REPOSITIONED Q2 AND PRN. SIDE RAILS UP AND LOCKED. BED KEPT AT LOWEST POSITION. CALL LIGHT KEPT WITHIN EASY REACH. CONTINUITY OF CARE ENDORSED TO AM NURSE.
[2017-02-14 08:00] VITALS: BP 99/42
--- NOTE | 2017-02-14 08:00 | NUR ---
initial note resting in bed, follows simple command, oriented to person only. verbalizes some words. breathing even and unlabored with 2l NC. patient removed NC, reapplied and instructed to keep on. patient confused. tele monitor reading SB 52. RFA iv 22 patent with d5w infusing 150ml/hr. f/c patent with clear yellow urine. patient denies pain at this time. skin warm and dry, no edema. repositioned patient in functional alignment. attempted to provide oral care but patient shutting her mouth closed- unable. will f/u with MD about feeding options. AM meds not able to be administered. call light in reach.
[2017-02-14 08:12] LABS: ALBUMIN 1.7 g/dL (3.4-5.0); BILIRUBIN,TOTAL 0.4 mg/dL (0.2-1.0); CALCIUM, SERUM 8.2 mg/dL (8.5-10.1); CREATININE 1.7 mg/dL (0.6-1.3); MAGNESIUM 2.2 mg/dL (1.8-2.4); PHOSPHORUS 2.2 mg/dL (2.5-4.9); POTASSIUM 3.5 mmol/L (3.5-5.1); TOTAL PROTEIN, SERUM 5.6 g/dL (6.4-8.2)
[2017-02-14 08:14] LABS: ANISOCYTOSIS 1+; BAND % (MANUAL) 3 % (0.0-5.0); EOSINOPHILS % (MANUAL) 4 % (0-4); LYMPHOCYTES % (MANUAL) 12 % (16-48); MONOCYTES % (MANUAL) 8 % (0-11.0); NEUTROPHILS % (MANUAL) 73 (42-76); PLATELET ESTIMATE DECREASED
[2017-02-14] MEDS: PANTOPRAZOLE 40 MG VIAL IV SCH (08:48)
[2017-02-14] MEDS: LACTOBACILLUS RHAMNOSUS GG 1 EACH CAP.SPRINK PO SCH ×2 (09:00→16:17)
[2017-02-14] MEDS: AMANTADINE HCL 100 MG CAPSULE PO SCH ×2 (09:00→16:17)
[2017-02-14] MEDS: CITALOPRAM HYDROBROMIDE 10 MG TABLET PO SCH (09:00)
[2017-02-14] MEDS: HALOPERIDOL 1 MG TABLET PO SCH ×2 (09:00→16:17)
[2017-02-14] MEDS: DIVALPROEX SODIUM 125 MG CAP.SPRINK PO SCH ×2 (09:00→16:17)
[2017-02-14] MEDS: MIDODRINE HCL (5MG) 5 MG TABLET PO SCH ×2 (09:00→16:17)
[2017-02-14 12:00] VITALS: BP 91/41
[2017-02-14] MEDS ORDERED: SODIUM PHOSPHATE IV ONE (15:30)
[2017-02-14] MEDS ORDERED: D5W IV ONE (15:30)
[2017-02-14 16:00] VITALS: BP 92/46
[2017-02-14] MEDS ORDERED: SECONDARY IV SET 1 EA INFUS.SET MC ONE (16:34)
[2017-02-14] MEDS ORDERED: IV SET PRIMARY PUMP SET 1 EA INFUS.SET MC ONE (16:37)
--- NOTE | 2017-02-14 19:39 | NUR ---
closing note handed off report to night nurse. patient opens eyes spontaneously, verbalizes. breathing wnl 2L NC. appearing lethargic, aware. RAC iv patent with 150ml/hr d5w infusing. no feeding this shift. discussed possible plan for feeding with dr. Ej MD made aware of albumin level. no new orders at this time. called responsible alliance party on patient's face sheet to discuss plan of care, voice message said out of office until 02/16/17. provided frequent ADL care and repositioning this shift. call light in reach.
--- NOTE | 2017-02-14 19:40 | NUR ---
[facility]/MAIL FORWARDING SYSTEM MARKUP CLERK WHILE MAKING ROUNDS, NOTICED THAT PT'S IV HAD INFILTRATED. IV WAS DISCONNECTED. NEW IV WAS STARTED TO LEFT WRIST #22.
[2017-02-14 20:00] VITALS: BP 109/42
--- NOTE | 2017-02-14 20:30 | NUR ---
[facility]/PROGRAM SUPPORT CLERK PT WAS GIVEN ORAL CARE, NOTED THICK BROWN CRUST ON TONGUE AND TEETH. PT IS A MOUTH BREATHER. PT TOLERATED THIS WELL, APPEARED TO BE MORE RESPONSIBLE TO THIS. WILL MONITOR PT.
--- NOTE | 2017-02-14 22:15 | NUR ---
[facility]/CIRCULAR RIPSAW OPERATOR PT'S HEART RATE DOWN TO 43'S, WENT INTO ROOM. PT WAS RESPONSIVE TO VOICE HOWEVER IS NONVERBAL. PT WAS TURNED AND REPOSITIONED FOR COMFORT AND CARE. CHARGE NURSE AWARE OF THE LUDY. WILL CONTINUE TO MONITOR THIS PT.
[2017-02-15] VITALS (7 sets, daily range): BP systolic 92–137; BP diastolic 38–74
--- NOTE | 2017-02-15 02:20 | NUR ---
[facility]/TAXICAB STARTER PT WAS GIVEN AM CARE, ALONG WITH ORAL CARE. PT IS RESPONSIVE. PT CONTINUES TO HAVE LONG PERIODS OF BRADYCARDIA INTO 40'S, CHARGE NURSE AWARE. CALL LIGHT WITHIN REACH.
[2017-02-15] MEDS: MEROPENEM 500 MG in IV NS 0.9% 50 ML IV SCH ×2 (03:24→16:35)
--- NOTE | 2017-02-15 04:15 | NUR ---
[facility]/DATABASE MANAGEMENT SPECIALIST PT'S 0400 DOSE OF MERREM HUNG UP BY RN. PT IS ALSO RECEIVING IVF OF D5W@150CC/HR. PT IS CURRENTLY NPO. WILL CONTINUE TO MONITOR THIS PT. PT WAS TURNED AND REPOSITIONED FOR COMFORT AND CARE.
[2017-02-15] MEDS: IV D5W 1,000 ML IV PRN (06:17)
--- NOTE | 2017-02-15 07:15 | NUR ---
RN INITIAL NOTE PT RECEIVED IN BED, AWAKE, ALERT AND ORIENTED. ABLE TO MAKE NEEDS KNOWN. PT IS SINUS TACH ON TELE MONITOR. SATING WELL ON 2L N/C. RESPIRATIONS ARE EVEN AND UNLABORED. NO S/S OF RESPIRATORY DISTRESS OR SOB. IS WHEEZING. HOLM CATH DRAINING TO GRAVITY. SKIN IS WARM AND DRY TO TOUCH. LEFT FOREARM IV SITE FLUSHED, PATENT. NORMAL SALINE RUNNING AT 75ML/HR. SAFETY PRECAUTIONS IMPLEMENTED. BED IN LOCKED, LOW POSITION. TWO SIDE RAILS UP. CALL LIGHT WITHIN REACH. WILL CONTINUE TO MONITOR.
[2017-02-15 07:26] LABS: CALCIUM, SERUM 7.8 mg/dL (8.5-10.1); CREATININE 1.4 mg/dL (0.6-1.3); PHOSPHORUS 2.6 mg/dL (2.5-4.9); POTASSIUM 3.1 mmol/L (3.5-5.1)
--- NOTE | 2017-02-15 07:30 | NUR ---
RN INITIAL NOTE PT RECEIVED IN BED, AWAKE, UNRESPONSIVE. PT IS SINUS LUDY ON TELE MONITOR. SATING WELL ON 2L N/C. RESPIRATIONS ARE EVEN AND UNLABORED. NO S/S OF RESPIRATORY DISTRESS OR SOB. HOLM CATH DRAINING TO GRAVITY. SKIN IS WARM AND DRY TO TOUCH. LEFT WRIST IV SITE FLUSHED, PATENT. D5W RUNNING AT 150ML/HR. SAFETY PRECAUTIONS IMPLEMENTED. BED IN LOCKED, LOW POSITION. TWO SIDE RAILS UP. CALL LIGHT WITHIN REACH. WILL CONTINUE TO MONITOR.
[2017-02-15] MEDS: PANTOPRAZOLE 40 MG VIAL IV SCH (08:26)
[2017-02-15] MEDS: DIVALPROEX SODIUM 125 MG CAP.SPRINK PO SCH ×2 (09:00→16:38)
[2017-02-15] MEDS: CITALOPRAM HYDROBROMIDE 10 MG TABLET PO SCH (09:00)
[2017-02-15] MEDS: HALOPERIDOL 1 MG TABLET PO SCH ×2 (09:00→16:38)
[2017-02-15] MEDS: MIDODRINE HCL (5MG) 5 MG TABLET PO SCH ×2 (09:00→16:38)
[2017-02-15] MEDS: AMANTADINE HCL 100 MG CAPSULE PO SCH ×2 (09:00→16:39)
[2017-02-15] MEDS: LACTOBACILLUS RHAMNOSUS GG 1 EACH CAP.SPRINK PO SCH ×2 (09:00→16:37)
[2017-02-15] MEDS: POTASSIUM CL. PREMIX PERIPHER. 50 ML IV SCH ×4 (12:38→16:35)
[2017-02-15] MEDS: Potassium Chloride 40 MEQ in IV D5W 1,000 ML IV PRN (18:15)
--- NOTE | 2017-02-15 19:07 | NUR ---
RN CLOSING NOTE PT IN BED RESTING COMFORTABLY. ALL MD ORDERS CARRIED OUT. SAFETY PRECAUTIONS IN PLACE AT ALL TIMES. ISOLATION PRECAUTIONS OBSERVED AT ALL TIMES. WILL GIVE REPORT TO PM RN FOR BRYSON.
--- NOTE | 2017-02-15 19:30 | NUR ---
RN INITIAL NOTES RECEIVED PT ASLEEP ON BED, EASILY AROUSABLE TO NAME AND TOUCH. NON-VERBAL, BUT NODS HEAD TO ANSWER QUESTIONS. ON 2L NASAL CANNULA, NO S/S OF RESP DISTRESS, SATURATING WELL. CURRENTLY SB ON THE MONITOR, HR 50'S. HOLM CATH INTACT. LEFT WRIST 22G WITH KCL 40MEQ IN D5W @ 150MLS/HR, FLUSHED AND PATENT, NO S/S OF INFILTRATION/INFECTION, DRESSING CDI. BED LOW AND LOCKED, SIDERAILS UP, BED ALARM ON. WILL MONITOR
[2017-02-15] MEDS ORDERED: IV PREMIX D5W + KCL 1,000 ML IV ONE (22:57)
--- NOTE | 2017-02-15 23:00 | NUR ---
RN NOTES NOTIFIED ON-CALL [employer] TRIMMER FRANCISCA JOHNSON THAT PATIENT HAS IVF 40MEQ KCL IN D5W RUNNING @ 150MLS/HR. HOWEVER, THERE IS NO EXTRA BAG AVAILABLE. PHARMACY IS NOT AVAILABLE TONIGHT AND NURSING REPAIR DEPARTMENT MANAGER ONLY HAS 20MEQ KCL IN D5W AVAILABLE. PER [employer] TRIMMER FRANCISCA, WILL ORDER ONE TIME 20MEQ KCL IN D5W @ 150MLS/HR TO BE GIVEN FOR TONIGHT
[2017-02-16] VITALS: BP 110/47
[2017-02-16] MEDS ORDERED: Potassium Chloride 20 MEQ in IV D5W 1,000 ML IV ONE (03:00)
[2017-02-16] MEDS: MEROPENEM 500 MG in IV NS 0.9% 50 ML IV SCH ×2 (03:13→17:04)
[2017-02-16] MEDS ORDERED: SECONDARY IV SET 1 EA INFUS.SET MC ONE (03:16)
[2017-02-16 04:00] VITALS: BP 102/43
[2017-02-16 06:07] LABS: *SPE A/G RATIO 0.8 (0.7-1.7); *SPE ALBUMIN 2.3 g/dL (2.9-4.4); *SPE ALPHA-1-GLOBULIN 0.3 g/dL (0.0-0.4); *SPE ALPHA-2-GLOBULIN 0.7 g/dL (0.4-1.0); *SPE BETA GLOBULIN 0.8 g/dL (0.7-1.3); *SPE GLOBULIN, TOTAL 2.9 g/dL (2.2-3.9); *SPE M-SPIKE Not Observed g/dL (Not Observed); *SPE PROTEIN TOTAL 5.2 g/dL (6.0-8.5); *SPEGAMMA GLOBULIN 1.2 g/dL (0.4-1.8)
--- NOTE | 2017-02-16 06:30 | NUR ---
RN CLOSING NOTES PT REMAINS STABLE OF THE MOMENT. ALL DUE MEDS GIVEN, AM CARE PROVIDED. WILL ENDORSE TO AM RN
[2017-02-16 06:47] LABS: BASOPHILS % (AUTO) 0.1 % (0.0-2.0); EOSINOPHILS # (AUTO) 0.3 /CMM (0.0-0.7); EOSINOPHILS % (AUTO) 2.7 % (0.0-6.0); HEMATOCRIT 30 % (33-45); HEMOGLOBIN 9.8 g/dL (11.5-14.8); LYMPHOCYTES # (AUTO) 2.1 /CMM (0.8-4.8); LYMPHOCYTES % (AUTO) 18.1 % (20.0-44.0); MEAN CORPUSCULAR HEMOGLOBIN 32 PG (26.0-33.0); MEAN CORPUSCULAR HGB CONC 33 g/dl (31.0-36.0); MEAN CORPUSCULAR VOLUME 99 fL (82-100); MONOCYTES # (AUTO) 0.8 /CMM (0.1-1.30); MONOCYTES % (AUTO) 6.7 % (2.0-12.0); NEUTROPHILS # (AUTO) 8.5 /CMM (1.8-8.9); NEUTROPHILS % (AUTO) 72.4 % (43.0-81.0); PLATELET COUNT (AUTO) 98 /CMM (150-450); RDW COEFFICIENT OF VARIATION 13.9 (11.5-15.0); RED BLOOD CELL COUNT(AUTO) 3.03 MIL/uL (4.0-5.2); WHITE BLOOD COUNT (AUTO) 11.7 K/uL (4.3-11.0)
[2017-02-16 06:54] LABS: CALCIUM, SERUM 7.9 mg/dL (8.5-10.1); CREATININE 1.3 mg/dL (0.6-1.3); MAGNESIUM 1.9 mg/dL (1.8-2.4); PHOSPHORUS 1.8 mg/dL (2.5-4.9); POTASSIUM 3.9 mmol/L (3.5-5.1)
[2017-02-16 07:17] LABS: EOSINOPHILS % (MANUAL) 2 % (0-4); LYMPHOCYTES % (MANUAL) 17 % (16-48); NEUTROPHILS % (MANUAL) 81 (42-76)
[2017-02-16 07:18] LABS: PLATELET ESTIMATE DECREASED
[2017-02-16 08:00] VITALS: BP 101/34
[2017-02-16] MEDS: HALOPERIDOL 1 MG TABLET PO SCH ×2 (08:46→17:00)
[2017-02-16] MEDS: MIDODRINE HCL (5MG) 5 MG TABLET PO SCH ×2 (08:46→17:00)
[2017-02-16] MEDS: LACTOBACILLUS RHAMNOSUS GG 1 EACH CAP.SPRINK PO SCH ×2 (08:46→17:00)
[2017-02-16] MEDS: AMANTADINE HCL 100 MG CAPSULE PO SCH ×2 (08:46→17:00)
[2017-02-16] MEDS: CITALOPRAM HYDROBROMIDE 10 MG TABLET PO SCH (08:46)
[2017-02-16] MEDS: DIVALPROEX SODIUM 125 MG CAP.SPRINK PO SCH ×2 (08:46→17:00)
[2017-02-16] MEDS: PANTOPRAZOLE 40 MG VIAL IV SCH (08:51)
--- NOTE | 2017-02-16 11:13 | NUR ---
RN NOTES PT WAS SEEN BY ST, FAILED SWALLOW EVAL, PT NOTED NOT SWALLOWING FOOD.
[2017-02-16] MEDS: Potassium Chloride 40 MEQ in IV D5W 1,000 ML IV PRN ×2 (11:27→18:34)
[2017-02-16] MEDS ORDERED: IV SET PRIMARY PUMP SET 1 EA INFUS.SET MC ONE (14:10)
[2017-02-16] MEDS: Potassium Phosphate meq 11 MEQ in IV D5W 100 ML IV SCH ×2 (14:14→17:01)
[2017-02-16 16:00] VITALS: BP 107/56
--- NOTE | 2017-02-16 16:18 | NUR ---
RN NOTES DR PEPE MADE AWARE PT FAILED SWALLOW EVAL, AWAITING FOR RESPONSE
--- NOTE | 2017-02-16 17:10 | NUR ---
RN NOTES DR PEPE AT BEDSIDE, PT WAS SEEN AND EVALUATED PER MD TO INSERT NGT FOR TEMPORARY FEEDING. PT NPO FOR SEVERAL DAYS. PER MD OK TO START FIBERSOURCE GOAL IS 55ML/HR PER GUIDE DOG MOBILITY INSTRUCTOR RECOMMENDATION
[2017-02-16] MEDS ORDERED: Z GUARD REMEDY 2 OZ OINT TP PRN (17:30)
--- NOTE | 2017-02-16 18:06 | NUR ---
RN NOTES RECEIVED A CALL FROM JASON FROM MRI DEPT, PER JASON PT REFUSED TO DO BRAIN MRI TODAY, THEY WERE ABLE TO DO MRI NECK AND BRAIN MRA BUT PT COULDNT TOLERATE PROCEDURE AND REQUESTS TO DO THE BRAIN MRI JUWAN. PER JASON PT WILL BE PICKED UP AT 9 AM Addendum: 02/16/17 at 1808 by TIM CARPENTER RN WRONG ENTRY
--- NOTE | 2017-02-16 19:40 | NUR ---
RN INITIAL NOTE PT IS IN BED, AWAKE, NO ACUTE DISTRESS NOTED, ON O2 2LPM TOLERATING IT WELL. NGT LEFT NARE, WAITING FOR XRAY CONFIRMATION FOR PLACEMENT. ON RESTRAINTS SOFT BILATERAL WRIST RESTRAINTS, SKIN CHECKED, NO NEW SKIN BREAKDOWN, CHECKED FOR CIRCULATION. HOLM IS PATENT AND DRAINING YELLOW URINE, SIDERAILS UP, BED LOCKED IN LOWEST POSITION, CALL LIGHTS WITHIN REACH.
[2017-02-16 20:00] VITALS: BP 101/78
--- NOTE | 2017-02-16 21:27 | NUR ---
RN NOTES XRAY RESULT CAME BACK SHOWED PLACEMENT OF THE NGTUBE IN STOMACH. WILL START FEEDING AT FIBERSOURCE @ 10ML/HR, GOAL IS 55ML/HR. WILL CHECK FOR RESIDUAL, AND WILL CONTINUE TO MONITOR ,
[2017-02-16] MEDS ORDERED: FIBERSOURCE HN 1,000 ML BOTTLE GT PRN (22:00)
--- NOTE | 2017-02-16 22:16 | NUR ---
RN NOTES WAITING FOR MD'S CALL TO CONFIRM ORDER REGARDING GTFEEDING, AND RESUMING MEDS.
--- NOTE | 2017-02-16 22:40 | NUR ---
RN NOTES STARTED NGT FEEDING @ 10ML/HR, WILL INCREASE RATE AND WILL CHECK FOR RESIDUAL EVERY HOUR UNTIL 55ML/HR GOAL IS REACH.
[2017-02-17] MEDS: Potassium Chloride 40 MEQ in IV D5W 1,000 ML IV PRN (03:27)
[2017-02-17] MEDS: MEROPENEM 500 MG in IV NS 0.9% 50 ML IV SCH ×2 (03:27→16:29)
[2017-02-17 04:00] VITALS: BP 123/55
[2017-02-17 06:27] LABS: BASOPHILS % (AUTO) 0.2 % (0.0-2.0); EOSINOPHILS # (AUTO) 0.4 /CMM (0.0-0.7); EOSINOPHILS % (AUTO) 3.9 % (0.0-6.0); HEMATOCRIT 29 % (33-45); HEMOGLOBIN 9.8 g/dL (11.5-14.8); LYMPHOCYTES # (AUTO) 1.9 /CMM (0.8-4.8); LYMPHOCYTES % (AUTO) 21.1 % (20.0-44.0); MEAN CORPUSCULAR HEMOGLOBIN 33 PG (26.0-33.0); MEAN CORPUSCULAR HGB CONC 34 g/dl (31.0-36.0); MEAN CORPUSCULAR VOLUME 97 fL (82-100); MONOCYTES # (AUTO) 0.7 /CMM (0.1-1.30); MONOCYTES % (AUTO) 7.4 % (2.0-12.0); NEUTROPHILS # (AUTO) 6.1 /CMM (1.8-8.9); NEUTROPHILS % (AUTO) 67.4 % (43.0-81.0); PLATELET COUNT (AUTO) 125 /CMM (150-450); RDW COEFFICIENT OF VARIATION 13.5 (11.5-15.0)
[2017-02-17 06:44] LABS: CALCIUM, SERUM 7.8 mg/dL (8.5-10.1); CREATININE 1.1 mg/dL (0.6-1.3); MAGNESIUM 1.7 mg/dL (1.8-2.4); PHOSPHORUS 2.3 mg/dL (2.5-4.9); POTASSIUM 4.3 mmol/L (3.5-5.1)
--- NOTE | 2017-02-17 06:59 | NUR ---
MANAGER FLOOR CLOSING NOTES NO SIGNIFICANT CHANGES OVERNIGHT, ON NASAL CANNULA O2 2LP, NO RESPIRATORY DISTRESS NOTED, ON SOFT BILATERAL RESTRAINTS, CHECKED FOR CIRCULATION, NO NEW SKIN BREAKDOWN, TURNED AND REPOSITIONED Q2H AND PRN. ON GTF CONTINUOS FEEDING AND TOLERATED CURRENT RATE OF 55ML/HR, NO RESIDUAL, PLACEMENT CHECKED AND CONFIRMED BY XRAY. R WRIST IV PATENT, NO S/SX OF INFECTION OR INFILTRATION. ALL MEDS GIVEN ORDERED, TOLERATED IT WELL. ALL SAFETY MEASURES MAINTAINED. CALL LIGHT WITHIN REACH, WILL ENDORSE TO AM NURSE FOR CONTINUATION OF CARE. Addendum: 02/17/17 at 0709 by ZAN HERRERA RN PT IS MED/SURG
--- NOTE | 2017-02-17 07:30 | NUR ---
RN NOTES RECEIVED PT IN BED, ASLEEP AT THIS TIME, AROUSABLE TO VERBAL AND TACTILE STIMULI. NO ACUTE DISTRESS NOTED, ON O2 2LPM TOLERATING WELL. NOTED WITH NGT LEFT NARE, ONGOING GTF FIBERSOURCE@55ML/HR. NO N/V NOTED. NOTED WITH RESTRAINTS SOFT BILATERAL WRIST RESTRAINTS, RELEASED AND CHECKED FOR SKIN CIRCULATION. [place] HOLM IS PATENT CONNECTED TO CLOSED SYSTEM. SIDERAILS UP, BED LOCKED IN LOWEST POSITION, CALL LIGHTS WITHIN REACH.
[2017-02-17 08:00] VITALS: BP 127/52
[2017-02-17] MEDS: HALOPERIDOL 1 MG TABLET PO SCH ×2 (08:27→16:29)
[2017-02-17] MEDS: PANTOPRAZOLE 40 MG VIAL IV SCH (08:27)
[2017-02-17] MEDS: MIDODRINE HCL (5MG) 5 MG TABLET PO SCH ×2 (08:27→16:29)
[2017-02-17] MEDS: DIVALPROEX SODIUM 125 MG CAP.SPRINK PO SCH ×2 (08:27→16:29)
[2017-02-17] MEDS: CITALOPRAM HYDROBROMIDE 10 MG TABLET PO SCH (08:27)
[2017-02-17] MEDS: LACTOBACILLUS RHAMNOSUS GG 1 EACH CAP.SPRINK PO SCH ×2 (08:27→16:29)
[2017-02-17] MEDS: AMANTADINE HCL 100 MG CAPSULE PO SCH ×2 (11:29→16:29)
[2017-02-17] MEDS ORDERED: NEUTRA PHOS 1 POWD.PACKET NG ONE (13:30)
[2017-02-17] MEDS: Magnesium 1GM/D5W 100ML PREMIX 100 ML IV SCH ×2 (13:52→15:42)
--- NOTE | 2017-02-17 14:35 | NUR ---
RN NOTES SPOKE WITH [facility] INVESTMENT FUND MANAGER, PT UPDATE REPORTED, CURRENT LABS REPORTED. REPORTED CURRENT K LEVEL, PER ROME TO DC IVF. PT ALSO FOR PSYCH CONSULT.
[2017-02-17 16:00] VITALS: BP 115/43
--- NOTE | 2017-02-17 19:25 | NUR ---
RN INITIAL NOTE PT IS IN BED, HOB ELEVATED, NO ACUTE DISTRESS NOTED, ON O2 2LPM TOLERATING IT WELL. NGT LEFT NARE, ON CONTINUOS FEEDING AND TOLERATING IT WELL. ON RESTRAINTS SOFT BILATERAL WRIST RESTRAINTS, SKIN CHECKED, NO NEW SKIN BREAKDOWN, CHECKED FOR CIRCULATION. HOLM IS PATENT AND DRAINING YELLOW URINE, BED LOCKED IN LOWEST POSITION, CALL LIGHTS WITHIN REACH.
[2017-02-17 20:00] VITALS: BP 97/30
--- NOTE | 2017-02-18 | NUR ---
RN NOTES PT HAS BEEN NPO SINCE MIDNIGHT, UNABLE TO OBTAIN CONSENT FOR EGD WITH BIOPSY AND PEG INSERTION. PT CURRENTLY NOT ON THE SCHEDULE, WILL TRY IN AM.
[2017-02-18] MEDS: MEROPENEM 500 MG in IV NS 0.9% 50 ML IV SCH ×2 (03:56→16:00)
[2017-02-18 04:00] VITALS: BP 101/30
[2017-02-18 06:45] LABS: BASOPHILS % (AUTO) 0.4 % (0.0-2.0); EOSINOPHILS # (AUTO) 0.4 /CMM (0.0-0.7); EOSINOPHILS % (AUTO) 4.4 % (0.0-6.0); HEMATOCRIT 28 % (33-45); HEMOGLOBIN 9.1 g/dL (11.5-14.8); LYMPHOCYTES # (AUTO) 2.3 /CMM (0.8-4.8); LYMPHOCYTES % (AUTO) 22.8 % (20.0-44.0); MEAN CORPUSCULAR HEMOGLOBIN 32 PG (26.0-33.0); MEAN CORPUSCULAR HGB CONC 33 g/dl (31.0-36.0); MEAN CORPUSCULAR VOLUME 97 fL (82-100); MONOCYTES # (AUTO) 0.7 /CMM (0.1-1.30); MONOCYTES % (AUTO) 7.3 % (2.0-12.0); NEUTROPHILS # (AUTO) 6.6 /CMM (1.8-8.9); NEUTROPHILS % (AUTO) 65.1 % (43.0-81.0); PLATELET COUNT (AUTO) 149 /CMM (150-450); RDW COEFFICIENT OF VARIATION 13.8 (11.5-15.0); RED BLOOD CELL COUNT(AUTO) 2.84 MIL/uL (4.0-5.2); WHITE BLOOD COUNT (AUTO) 10.2 K/uL (4.3-11.0)
--- NOTE | 2017-02-18 07:02 | NUR ---
RN CLOSING NOTES NO SIGNIFICANT CHANGES OVERNIGHT, ROOM AIR SATURATING WELL, TURNED AND REPOSITIONED Q2H AND PRN. ON SOFT BILATERAL RESTRAINTS CHECKED FOR CIRCULATION, NO NEW SKIN BREAKDOWN, GTF ON HOLD. NPO SINCE MIDNIGHT. ALL MEDS GIVEN ORDERED, TOLERATED IT WELL. ALL SAFETY MEASURES MAINTAINED. CALL LIGHT WITHIN REACH, WILL ENDORSE TO AM NURSE FOR CONTINUATION OF CARE.
[2017-02-18 07:10] LABS: ALBUMIN 1.7 g/dL (3.4-5.0); CALCIUM, SERUM 7.7 mg/dL (8.5-10.1); CREATININE 1.3 mg/dL (0.6-1.3); MAGNESIUM 2.3 mg/dL (1.8-2.4); PHOSPHORUS 3.8 mg/dL (2.5-4.9); POTASSIUM 4.6 mmol/L (3.5-5.1); TOTAL PROTEIN, SERUM 5.5 g/dL (6.4-8.2)
[2017-02-18 07:19] LABS: INR 1.17 (0.87-1.13); PROTHROMBIN TIME 12.6 SECS (9.5-12.7)
[2017-02-18 07:22] LABS: BILIRUBIN,TOTAL 0.3 mg/dL (0.2-1.0)
[2017-02-18 08:00] VITALS: BP 100/36
[2017-02-18] MEDS: HALOPERIDOL 1 MG TABLET PO SCH ×2 (09:00→17:00)
[2017-02-18] MEDS: DIVALPROEX SODIUM 125 MG CAP.SPRINK PO SCH ×2 (09:00→17:00)
[2017-02-18] MEDS: MIDODRINE HCL (5MG) 5 MG TABLET PO SCH ×2 (09:00→17:00)
[2017-02-18] MEDS: LACTOBACILLUS RHAMNOSUS GG 1 EACH CAP.SPRINK PO SCH ×2 (09:00→17:00)
[2017-02-18] MEDS: AMANTADINE HCL 100 MG CAPSULE PO SCH ×2 (09:00→17:00)
[2017-02-18] MEDS: CITALOPRAM HYDROBROMIDE 10 MG TABLET PO SCH (09:00)
[2017-02-18] MEDS: PANTOPRAZOLE 40 MG VIAL IV SCH (11:40)
[2017-02-18 12:00] VITALS: BP 126/52
[2017-02-18 16:00] VITALS: BP 76/33
[2017-02-18] MEDS ORDERED: FIBERSOURCE HN 1,000 ML BOTTLE GT PRN (17:27)
[2017-02-18] MEDS ORDERED: SECONDARY IV SET 1 EA INFUS.SET MC ONE (18:31)
[2017-02-18] MEDS ORDERED: IV SET PRIMARY PUMP SET 1 EA INFUS.SET MC ONE (19:02)
[2017-02-18 20:00] VITALS: BP_SYST 32; BP_SYST 93; BP_DIAS 32; BP_DIAS 52
--- NOTE | 2017-02-18 20:13 | NUR ---
patient s/p peg tube placement .no distress noted when back from surgery..all due meds as well as nursing care given and well tolerated/patient is stable .started on fibersource hn @30 to reach goal of 55ml/hr.report given to incoming nurse
[2017-02-19 04:00] VITALS: BP_SYST 113; BP_DIAS 50; BP_DIAS 90
[2017-02-19] MEDS ORDERED: IV SET PRIMARY PUMP SET 1 EA INFUS.SET MC ONE (04:40)
[2017-02-19] MEDS: MEROPENEM 500 MG in IV NS 0.9% 50 ML IV SCH (04:45)
[2017-02-19 06:24] LABS: BASOPHILS % (AUTO) 0.2 % (0.0-2.0); EOSINOPHILS # (AUTO) 0.5 /CMM (0.0-0.7); HEMATOCRIT 30 % (33-45); HEMOGLOBIN 9.9 g/dL (11.5-14.8); LYMPHOCYTES # (AUTO) 2.4 /CMM (0.8-4.8); LYMPHOCYTES % (AUTO) 19.4 % (20.0-44.0); MEAN CORPUSCULAR HEMOGLOBIN 32 PG (26.0-33.0); MEAN CORPUSCULAR HGB CONC 33 g/dl (31.0-36.0); MEAN CORPUSCULAR VOLUME 97 fL (82-100); MONOCYTES # (AUTO) 0.8 /CMM (0.1-1.30); MONOCYTES % (AUTO) 6.4 % (2.0-12.0); NEUTROPHILS # (AUTO) 8.6 /CMM (1.8-8.9); PLATELET COUNT (AUTO) 196 /CMM (150-450); RDW COEFFICIENT OF VARIATION 13.4 (11.5-15.0); WHITE BLOOD COUNT (AUTO) 12.3 K/uL (4.3-11.0)
[2017-02-19 06:30] LABS: CALCIUM, SERUM 8.1 mg/dL (8.5-10.1); CREATININE 1.1 mg/dL (0.6-1.3); MAGNESIUM 2.1 mg/dL (1.8-2.4); PHOSPHORUS 3.7 mg/dL (2.5-4.9); POTASSIUM 3.8 mmol/L (3.5-5.1)
[2017-02-19 08:00] VITALS: BP 113/50
[2017-02-19] MEDS: CITALOPRAM HYDROBROMIDE 10 MG TABLET PO SCH (08:47)
[2017-02-19] MEDS: LACTOBACILLUS RHAMNOSUS GG 1 EACH CAP.SPRINK PO SCH (08:47)
[2017-02-19] MEDS: DIVALPROEX SODIUM 125 MG CAP.SPRINK PO SCH (08:47)
[2017-02-19] MEDS: HALOPERIDOL 1 MG TABLET PO SCH (08:47)
[2017-02-19] MEDS: PANTOPRAZOLE 40 MG VIAL IV SCH (08:47)
[2017-02-19] MEDS: AMANTADINE HCL 100 MG CAPSULE PO SCH (08:47)
[2017-02-19] MEDS: MIDODRINE HCL (5MG) 5 MG TABLET PO SCH (08:49)
[2017-02-19] MEDS ORDERED: MERO1VIA IV (12:33)
[2017-02-19] MEDS ORDERED: LACT1CAP72 PO (12:33)
[2017-02-19] MEDS ORDERED: Nutritional Supplement/Fiber GT (12:33)
[2017-02-19] MEDS ORDERED: PANT40VI IV (12:33)
[2017-02-19 13:18] VITALS: BP 138/82
[2017-02-19] MEDS ORDERED: MEROPENEM 1 G in IV NS 0.9% 100 ML IV SCH (16:00)
[2017-02-19 17:00] VITALS: BP 104/50
== END 2017-02-19 17:42 | DRG 871 ==
LOC: ER 16:40 → TELE 19:02 → TELE-TD 21:35 → TELE1 02-11 11:19 → MEDSG1 02-16 10:33
PROVIDERS: ADMIT Contractor; ATTEND Contractor
PROC: 0DH63UZ Insertion of Feeding Device into Stomach, Percutaneous Approach (ICD-10-PCS; principal; 2017-02-18 12:10)
DX: A41.9 Sepsis, unspecified organism (principal); G93.40 Encephalopathy, unspecified; N17.0 Acute kidney failure with tubular necrosis; E43 Unspecified severe protein-calorie malnutrition; E87.2 Acidosis; E87.0 Hyperosmolality and hypernatremia; N39.0 Urinary tract infection, site not specified; J84.9 Interstitial pulmonary disease, unspecified; Z68.1 Body mass index [BMI] 19.9 or less, adult; E86.0 Dehydration; F03.90 Unspecified dementia, unspecified severity, without behavioral disturbance, psychotic disturbance, mood disturbance, and anxiety; F17.210 Nicotine dependence, cigarettes, uncomplicated; I12.9 Hypertensive chronic kidney disease with stage 1 through stage 4 chronic kidney disease, or unspecified chronic kidney disease; N18.9 Chronic kidney disease, unspecified; J44.9 Chronic obstructive pulmonary disease, unspecified; F32.9 Major depressive disorder, single episode, unspecified; F41.9 Anxiety disorder, unspecified; F20.9 Schizophrenia, unspecified; F29 Unspecified psychosis not due to a substance or known physiological condition; R65.20 Severe sepsis without septic shock; Z16.12 Extended spectrum beta lactamase (ESBL) resistance; K21.9 Gastro-esophageal reflux disease without esophagitis; I51.7 Cardiomegaly; K44.9 Diaphragmatic hernia without obstruction or gangrene; Z87.440 Personal history of urinary (tract) infections
CPT/HCPCS: 36415; 43246; 71010-TC; 80048-TC; 80053-TC; 80061-TC; 80076-TC; 80164-TC; 80202-TC; 81000-TC; 82550-TC; 82553-TC; 82570-TC; 83605-TC; 83735-TC; 83935-TC; 83970; 84100-TC; 84155; 84155-TC; 84165; 84295-TC; 84300-TC; 84443-TC; 84484-TC; 85025-TC; 85610-TC; 85730-TC; 87040-TC; 87081-TC; 87086-TC; 87186-TC; 92526; 92611-TC; 93307-TC; 94799-TC; A4216; A4606; A9563; C9113; J0690; J2185; J2543; J2704; J3370; J3475; J3480; J3490; J7030; J7040; J7060; J7070; Z7610

== ENCOUNTER 2017-03-04 10:59 | Inpatient (IN) | payer MEDICARE, MEDICAID ==
[~2017-03-04] VITALS: Ht 175.3 cm; Wt 50.8 kg
[~2017-03-04 10:59] MED LIST changes: +LACT1CAP72 PO; +MERO1VIA IV; -MULT1TAB11 PO; +Nutritional Supplement/Fiber GT; +PANT40VI IV
--- NOTE | 2017-03-04 11:21 | NUR ---
PT PRESENTS TO ER S/P 2 POSSIBLE SZ AT FACILITY. NAD NOTED. PT DOES NOT APEAR POSTICTAL. AT BASELINE LOC WITH ADVANCED DEMENTIA. UNABLE TO MAKE NEEDS KNOWN. NAD NOTED. RESP EVEN UNLABORED. PT RESTING QUIETLY. NO SEIZURE ACTIVITY NOTED. IN ER BED 09 ON MONITOR WITH SZ PRECAUTIONS IMPLEMENTED.
[2017-03-04 11:55] LABS: BASOPHILS # (AUTO) 0.1 /CMM (0.0-0.2); BASOPHILS % (AUTO) 0.9 % (0.0-2.0); EOSINOPHILS # (AUTO) 0.7 /CMM (0.0-0.7); EOSINOPHILS % (AUTO) 5.9 % (0.0-6.0); HEMATOCRIT 31 % (33-45); HEMOGLOBIN 10.1 g/dL (11.5-14.8); LYMPHOCYTES # (AUTO) 1.6 /CMM (0.8-4.8); LYMPHOCYTES % (AUTO) 13.8 % (20.0-44.0); MEAN CORPUSCULAR HEMOGLOBIN 32 PG (26.0-33.0); MEAN CORPUSCULAR HGB CONC 33 g/dl (31.0-36.0); MEAN CORPUSCULAR VOLUME 96 fL (82-100); MONOCYTES # (AUTO) 1.2 /CMM (0.1-1.30); MONOCYTES % (AUTO) 10.1 % (2.0-12.0); NEUTROPHILS # (AUTO) 7.9 /CMM (1.8-8.9); NEUTROPHILS % (AUTO) 69.3 % (43.0-81.0); PLATELET COUNT (AUTO) 215 /CMM (150-450); RDW COEFFICIENT OF VARIATION 13.6 (11.5-15.0); RED BLOOD CELL COUNT(AUTO) 3.18 MIL/uL (4.0-5.2); WHITE BLOOD COUNT (AUTO) 11.5 K/uL (4.3-11.0)
--- NOTE | 2017-03-04 12:07 | NUR ---
PT TRANSPORTED TO CT IN STABLE CONDITION. PT BECAME AGITATED DURING EKG AND IS NOW MOVING AROUND, MUSCLES TWITCHING.
[2017-03-04 12:09] LABS: CALCIUM, SERUM 8.6 mg/dL (8.5-10.1); CREATININE 1.1 mg/dL (0.6-1.3); POTASSIUM 4.4 mmol/L (3.5-5.1)
[2017-03-04 12:15] LABS: ALBUMIN 2.8 g/dL (3.4-5.0); BILIRUBIN,DIRECT 0.1 mg/dL (0.0-0.2); BILIRUBIN,TOTAL 0.4 mg/dL (0.2-1.0); TOTAL PROTEIN, SERUM 7.3 g/dL (6.4-8.2)
--- NOTE | 2017-03-04 13:00 | NUR ---
CALLED NURSING PEDIATRIC CNS FOR M/S BED
--- NOTE | 2017-03-04 13:07 | NUR ---
DR MENON ON THE PHONE WITH DR MAR
[2017-03-04] MEDS ORDERED: HYDROCODONE/APAP 5/325MG 1 EACH TABLET PO PRN (13:30)
[2017-03-04] MEDS ORDERED: ZOLPIDEM TARTRATE 5 MG TABLET PO PRN (13:30)
[2017-03-04] MEDS ORDERED: MAG HYDROX/AL HYDROX/SIMETH 30 ML UDC PO PRN ×2 (13:30→14:00)
[2017-03-04] MEDS ORDERED: ONDANSETRON HCL/PF 4 MG/2 ML VIAL IVP PRN (13:30)
[2017-03-04] MEDS ORDERED: Z GUARD REMEDY 2 OZ OINT TP PRN (13:30)
[2017-03-04] MEDS ORDERED: MAGNESIUM HYDROXIDE 30 ML UDC PO PRN ×2 (13:30→14:00)
[2017-03-04] MEDS ORDERED: ACETAMINOPHEN 325 MG TABLET PO PRN (13:30)
[2017-03-04 13:41] LABS: APPEARANCE,URINE CLOUDY (CLEAR); BILIRUBIN,URINE NEGATIVE (NEGATIVE); BLOOD, URINE NEGATIVE Ery/uL (NEGATIVE); COLOR,URINE YELLOW (YELLOW); KETONES,URINE NEGATIVE (NEGATIVE); LEUKOCYTE ESTERASE ,URINE 1+ (NEGATIVE); NITRITE, URINE NEGATIVE (NEGATIVE); PROTEIN,URINE NEGATIVE (NEGATIVE); UGLUCOSE NEGATIVE (NEGATIVE)
--- NOTE | 2017-03-04 13:57 | NUR ---
PER NURSE ALBERTO MAR UPGRADED TO TELE
--- NOTE | 2017-03-04 13:58 | NUR ---
report given to julian lizama for admission. pt pulled out lh 20g iv, new piv started on mirlande 20g
[2017-03-04] MEDS ORDERED: Medication Not On Formulary EA (Melatonin 3 MG) PO PRN (14:00)
[2017-03-04] MEDS ORDERED: ALBUTEROL FS 2.5 MG/3 ML VIAL.NEB IH PRN (14:00)
[2017-03-04] MEDS ORDERED: NA PHOS,M-B/NA PHOS,DI-BA 1 EA ENEMA RC PRN (14:00)
[2017-03-04] MEDS ORDERED: LORAZEPAM 0.5 MG TABLET PO PRN (14:00)
--- NOTE | 2017-03-04 14:21 | NUR ---
pt transported to [facility] in stable condition via acls
[2017-03-04] MEDS ORDERED: LORAZEPAM INJ 2 MG/ML VIAL IVP PRN (14:30)
--- NOTE | 2017-03-04 14:40 | NUR ---
MS RN NOTES RECEIVED PATIENT FROM ER ON [facility]. PATIENT WAS DISORIENTED AND CONFUSED. PATIENT IS A/OX1. UNABLE TO COMPREHEND. PATIENT'S IV WAS INTACT AND PATENT. G TUBE INTACT AND PATENT. PATIENT ON DIAPER. SKIN WAS INTACT. SLIGHT REDNESS NOTED ON PERINEAL AND LEFT BUTTOCKS AREA. PATIENT CURRENTLY ON 2 LPM VIA NASAL CANNULA OXYGEN. BED IS IN LOW LOCKED POSITION. CALL LIGHT WITHIN REACH. WILL CONTINUE TO MONITOR THROUGHOUT SHIFT.
[2017-03-04] MEDS ORDERED: FIBERSOURCE HN 1,000 ML BOTTLE GT PRN (15:30)
[2017-03-04 15:51] LABS: BACTERIA,URINE Moderate /HPF (None Seen); RBC,URINE 0-2 /HPF (0-2)
[2017-03-04 15:52] LABS: SQUAMOUS EPITHELIAL CELL,UR Many /HPF (None Seen)
[2017-03-04 15:56] VITALS: BP 133/72
[2017-03-04] MEDS ORDERED: Medication Not On Formulary EA (Cranberry Extract (Cranberry) 425 MG) PO SCH (17:00)
[2017-03-04] MEDS ORDERED: HALOPERIDOL 1 MG TABLET PO SCH (17:00)
[2017-03-04] MEDS ORDERED: DIVALPROEX SODIUM 125 MG CAP.SPRINK PO SCH (17:00)
[2017-03-04] MEDS ORDERED: LORAZEPAM 0.5 MG TABLET GT PRN (17:00)
[2017-03-04] MEDS ORDERED: MIDODRINE HCL (5MG) 5 MG TABLET PO SCH (17:00)
[2017-03-04] MEDS ORDERED: LACTOBACILLUS RHAMNOSUS GG 1 EACH CAP.SPRINK PO SCH (17:00)
[2017-03-04] MEDS ORDERED: AMANTADINE HCL 100 MG CAPSULE PO SCH (17:00)
[2017-03-04] MEDS ORDERED: MAG HYDROX/AL HYDROX/SIMETH 30 ML UDC GT PRN (17:02)
[2017-03-04] MEDS ORDERED: HYDROCODONE/APAP 5/325MG 1 EACH TABLET GT PRN (17:02)
[2017-03-04] MEDS ORDERED: MAGNESIUM HYDROXIDE 30 ML UDC GT PRN (17:02)
[2017-03-04] MEDS: LACTOBACILLUS RHAMNOSUS GG 1 EACH CAP.SPRINK GT SCH (18:14)
--- NOTE | 2017-03-04 18:42 | NUR ---
MS RN NOTES PATIENT IS CURRENTLY RESTING IN BED. NO DISORIENTATION NOTED. PATIENT IS A/OX1 (BASELINE). NO ACUTE DISTRESS OR ANY S/S OF SOB NOTED. PATIENT IV INTACT AND PATENT. G TUBE PATENT AND INTACT. RECEIVING FIBERSOURCE AT 40ML/HR. OXYGEN AT 2LPM VIA NASAL CANNULA. BED IS IN LOW LOCKED POSITION. SIDE RAILS UP X3. WILL ENDORSE CARE TO PM SHIFT.
--- NOTE | 2017-03-04 19:45 | NUR ---
RN OPENING NOTES RECEIVED REPORT FROM DAYSHIFT RN. FOUND Pt AWAKE RESTING IN BED. EQUAL CHEST RISE AND FALL NOTED. NO S/S OF ACUTE DISTRESS OR SOB NOTED. Pt IS A/OX1, VERBAL AND ABLE TO COMMUNICATE. GT FEEDING FIBERSOURCE @40ML/HR. IV ACCESS ON ERASMO 20G, SL. SAFETY MEASURES IN PLACE. BED LOW, LOCKED, HOB ELEVATED, SIDE RAILS UP, CALL LIGHT AND BEDSIDE TABLE WITHIN REACH. WILL CONTINUE TO MONITOR Pt THROUGHOUT THE NIGHT FOR SAFETY.
[2017-03-04 20:00] VITALS: BP 111/79
[2017-03-04] MEDS ORDERED: MEROPENEM 1 G VIAL IV SCH (21:00)
[2017-03-04] MEDS: ENOXAPARIN SODIUM 40 MG/0.4 ML DISP.SYRIN SQ SCH (23:23)
[2017-03-05] VITALS: BP 101/49
[2017-03-05 04:00] VITALS: BP 114/44
--- NOTE | 2017-03-05 06:50 | NUR ---
RN CLOSING NOTES NO SIGNIFICANT CHANGES DURING THE NIGHT. NO S/S OF ACUTE DISTRESS OR SOB NOTED. ALL NEEDS MET AND ATTENDED TO. SAFETY MEASURES IN PLACE. TELE READING SB HIGH 50's, TO SR 60's. WILL ENDORSE TO DAYSHIFT RN FOR Pt's BRYSON.
[2017-03-05 07:00] VITALS: BP 99/48
[2017-03-05] MEDS ORDERED: PANTOPRAZOLE 40 MG TABLET.DR PO SCH (07:30)
--- NOTE | 2017-03-05 07:30 | NUR ---
RN NOTES PATIENT RECEIVED RESTING COMFORTABLY IN BED, ORIENTED TO SELF ONLY, ABLE TO MAKE NEEDS KNOWN. RESPIRATIONS EVEN AND UNLABORED, DENIES ANY PAIN OR DISCOMFORT AT THIS TIME. IV ACCESS PATENT INTACT, NO REDNESS OR INFILTRATION NOTED. CONTINUED ON TELEMETRY MONITORING, KEPT CLEAN DRY AND COMFORTABLE, CALL LIGHT WITHIN EASY REACH WILL CONTINUE TO MONITOR
[2017-03-05 08:03] LABS: BASOPHILS % (AUTO) 0.2 % (0.0-2.0); EOSINOPHILS # (AUTO) 0.4 /CMM (0.0-0.7); EOSINOPHILS % (AUTO) 2.8 % (0.0-6.0); HEMATOCRIT 29 % (33-45); HEMOGLOBIN 9.8 g/dL (11.5-14.8); LYMPHOCYTES # (AUTO) 1.2 /CMM (0.8-4.8); LYMPHOCYTES % (AUTO) 8.7 % (20.0-44.0); MEAN CORPUSCULAR HEMOGLOBIN 33 PG (26.0-33.0); MEAN CORPUSCULAR HGB CONC 34 g/dl (31.0-36.0); MEAN CORPUSCULAR VOLUME 97 fL (82-100); MONOCYTES # (AUTO) 1.4 /CMM (0.1-1.30); MONOCYTES % (AUTO) 9.6 % (2.0-12.0); NEUTROPHILS # (AUTO) 11.1 /CMM (1.8-8.9); NEUTROPHILS % (AUTO) 78.7 % (43.0-81.0); PLATELET COUNT (AUTO) 186 /CMM (150-450); RDW COEFFICIENT OF VARIATION 13.9 (11.5-15.0); RED BLOOD CELL COUNT(AUTO) 3.01 MIL/uL (4.0-5.2); WHITE BLOOD COUNT (AUTO) 14.1 K/uL (4.3-11.0)
[2017-03-05 08:26] LABS: CALCIUM, SERUM 8.7 mg/dL (8.5-10.1); CREATININE 1.1 mg/dL (0.6-1.3); PHOSPHORUS 3.4 mg/dL (2.5-4.9); POTASSIUM 4.1 mmol/L (3.5-5.1)
[2017-03-05 08:31] LABS: THYROID STIMULATING HORMONE 0.661 uIU/mL (0.358-3.74)
[2017-03-05] MEDS: LACTOBACILLUS RHAMNOSUS GG 1 EACH CAP.SPRINK GT SCH ×2 (08:56→16:52)
[2017-03-05] MEDS: AMANTADINE HCL 100 MG CAPSULE GT SCH ×2 (08:56→16:52)
[2017-03-05] MEDS: HALOPERIDOL 1 MG TABLET GT SCH ×2 (08:57→16:53)
[2017-03-05] MEDS: DIVALPROEX SODIUM 125 MG CAP.SPRINK GT SCH ×2 (08:57→16:52)
[2017-03-05] MEDS: MIDODRINE HCL (5MG) 5 MG TABLET GT SCH ×2 (08:57→16:53)
[2017-03-05] MEDS: CITALOPRAM HYDROBROMIDE 10 MG TABLET GT SCH (08:57)
[2017-03-05] MEDS ORDERED: CEPHALEXIN MONOHYDRATE 500 MG CAPSULE PO SCH (09:00)
[2017-03-05] MEDS: PANTOPRAZOLE 40 MG/PACK PACK GT SCH (09:11)
[2017-03-05] MEDS ORDERED: NUTREN PULMONARY 1,000 ML BAG GT PRN (18:00)
--- NOTE | 2017-03-05 19:34 | NUR ---
RN NOTES PATIENT RESTING COMFORTABLY IN BED, ORIENTED TO SELF ONLY, ABLE TO MAKE NEEDS KNOWN. RESPIRATIONS EVEN AND UNLABORED, DENIES ANY PAIN OR DISCOMFORT AT THIS TIME. IV ACCESS PATENT INTACT, NO REDNESS OR INFILTRATION NOTED. KEPT CLEAN DRY AND COMFORTABLE, CALL LIGHT WITHIN EASY REACH ENDORSED TO NEXT SHIFT FOR CONTINUITY OF CARE
[2017-03-05 20:00] VITALS: BP 112/47
[2017-03-05] MEDS: NUTREN PULMONARY 1,000 ML BAG GT PRN (21:07)
[2017-03-05] MEDS: ENOXAPARIN SODIUM 40 MG/0.4 ML DISP.SYRIN SQ SCH (21:18)
--- NOTE | 2017-03-06 06:27 | NUR ---
MS RN NOTES AWAKE AND ALERT. RESPONDS TO TACTILE STIMULI. NOT IN ANY DISTRESS. NO SOB NOTED. NO S/SX OF PAIN OR DISCOMFORT AT THIS TIME. WITH IVF & GTF INFUSING WELL. AM CARE DONE. MONITORED ACCORDINGLY. CALL LIGHT WITHIN REACH. BED IN LOWEST POSITION. SR UP X 3 WITH BED ALARM ON FOR SAFETY. WILL ENDORSE TO NEXT SHIFT.
[2017-03-06 08:00] VITALS: BP 111/62
--- NOTE | 2017-03-06 08:00 | NUR ---
m/s goring cutter: initial assessment received pt in bed awake, alert to self only, pt knows her date of when asked, but remains confused and disoriented to time, place, and situation. reality orientation provided prn. hob elevated at 60 degree. g--tube placement checked and patent with no residual obtained. in no apparent distress noted. will continue to monitor.
[2017-03-06 08:07] LABS: BASOPHILS % (AUTO) 0.2 % (0.0-2.0); EOSINOPHILS # (AUTO) 0.8 /CMM (0.0-0.7); EOSINOPHILS % (AUTO) 6.7 % (0.0-6.0); HEMATOCRIT 29 % (33-45); HEMOGLOBIN 9.7 g/dL (11.5-14.8); LYMPHOCYTES # (AUTO) 1.7 /CMM (0.8-4.8); LYMPHOCYTES % (AUTO) 13.6 % (20.0-44.0); MEAN CORPUSCULAR HEMOGLOBIN 33 PG (26.0-33.0); MEAN CORPUSCULAR HGB CONC 34 g/dl (31.0-36.0); MEAN CORPUSCULAR VOLUME 97 fL (82-100); MONOCYTES # (AUTO) 1.3 /CMM (0.1-1.30); MONOCYTES % (AUTO) 10.3 % (2.0-12.0); NEUTROPHILS # (AUTO) 8.4 /CMM (1.8-8.9); NEUTROPHILS % (AUTO) 69.2 % (43.0-81.0); PLATELET COUNT (AUTO) 179 /CMM (150-450); RDW COEFFICIENT OF VARIATION 13.5 (11.5-15.0); RED BLOOD CELL COUNT(AUTO) 2.98 MIL/uL (4.0-5.2); WHITE BLOOD COUNT (AUTO) 12.1 K/uL (4.3-11.0)
[2017-03-06 08:19] LABS: CREATININE 1.1 mg/dL (0.6-1.3); POTASSIUM 4.4 mmol/L (3.5-5.1)
[2017-03-06] MEDS: DIVALPROEX SODIUM 125 MG CAP.SPRINK GT SCH ×2 (08:53→16:45)
[2017-03-06] MEDS: MIDODRINE HCL (5MG) 5 MG TABLET GT SCH ×2 (08:54→16:46)
[2017-03-06] MEDS: LACTOBACILLUS RHAMNOSUS GG 1 EACH CAP.SPRINK GT SCH ×2 (08:54→16:46)
[2017-03-06] MEDS: PANTOPRAZOLE 40 MG/PACK PACK GT SCH (08:55)
[2017-03-06] MEDS: AMANTADINE HCL 100 MG CAPSULE GT SCH ×2 (08:55→16:46)
[2017-03-06] MEDS: HALOPERIDOL 1 MG TABLET GT SCH ×2 (08:55→16:46)
[2017-03-06] MEDS: CITALOPRAM HYDROBROMIDE 10 MG TABLET GT SCH (08:55)
--- NOTE | 2017-03-06 09:00 | NUR ---
m/s applied researcher: md visit seen and examined by dr. van at this time. pt tolerating g-tube feeding with no residual obtained. will continue to monitor.
--- NOTE | 2017-03-06 11:00 | NUR ---
m/s preforms laminator: neuro f/u seen by dr. jimenez at this time.
--- NOTE | 2017-03-06 12:00 | NUR ---
m/s elementary school librarian: notes turned and repositioned. kept comfortable. hob elevated. tolerating g-tube feeding with no residual obtained. will continue to monitor.
--- NOTE | 2017-03-06 15:00 | NUR ---
m/s scrap crusher: notes in bed awake, reality orientation provided prn. pt unable to comprehend. kept comfortable with hob elevated at 60 degree. continue on g-tube feeding, reji. well. will monitor.
[2017-03-06 16:00] VITALS: BP 107/46
--- NOTE | 2017-03-06 18:40 | NUR ---
m/s highway administrative engineer: notes resting comfortable in bed with hob elevated at 60 degree. tolerating g-tube feeding. needs attended. no s/s of discomfort. reality orientation provided prn. will continue to monitor.
--- NOTE | 2017-03-06 19:30 | NUR ---
MS/RN RECEIVE PATIENT AWAKE, CONFUSED, APPEAR COMFORTABLE, NO SIGNS OF DISTRESS NOTED, GT FEEDING INFUSING, NO RESIDUAL NOTED, HOB ELEVATED, CALL LIGHT IN REACH. WILL MONITOR FOR SAFETY.
[2017-03-06 20:00] VITALS: BP 119/55
[2017-03-06] MEDS: ENOXAPARIN SODIUM 40 MG/0.4 ML DISP.SYRIN SQ SCH (22:14)
[2017-03-07] MEDS: ZOLPIDEM TARTRATE 5 MG TABLET GT PRN (00:25)
--- NOTE | 2017-03-07 00:32 | NUR ---
MS/RN PATIENT STILL AWAKE AT THIS TIME, MOVING AROUND THE BED, AMBIEN 5 MG GT WAS GIVEN ORDERED. WILL MONITOR.
[2017-03-07] MEDS ORDERED: NUTRITIONAL SUPPLEMENT/FIBER 250 ML CAN ONE (01:20)
--- NOTE | 2017-03-07 06:30 | NUR ---
MS/RN AWAKE, MORE CALM, COMFORTABLE, NO CHANGE IN CONDITION. ALL NEEDS ATTENDED AT THIS TIME. WILL CONTINUE TO MONITOR. LINDA, PHARMACIST MADE AWARE THAT NUTREN FEEDING FORMULA WAS NOT AVAILABLE.
[2017-03-07 07:25] LABS: BASOPHILS % (AUTO) 0.2 % (0.0-2.0); EOSINOPHILS # (AUTO) 0.5 /CMM (0.0-0.7); EOSINOPHILS % (AUTO) 5.6 % (0.0-6.0); HEMATOCRIT 31 % (33-45); HEMOGLOBIN 10.3 g/dL (11.5-14.8); LYMPHOCYTES # (AUTO) 1.1 /CMM (0.8-4.8); LYMPHOCYTES % (AUTO) 11.6 % (20.0-44.0); MEAN CORPUSCULAR HEMOGLOBIN 32 PG (26.0-33.0); MEAN CORPUSCULAR HGB CONC 33 g/dl (31.0-36.0); MEAN CORPUSCULAR VOLUME 96 fL (82-100); MONOCYTES # (AUTO) 0.9 /CMM (0.1-1.30); MONOCYTES % (AUTO) 9.5 % (2.0-12.0); NEUTROPHILS # (AUTO) 7.1 /CMM (1.8-8.9); NEUTROPHILS % (AUTO) 73.1 % (43.0-81.0); PLATELET COUNT (AUTO) 195 /CMM (150-450); RDW COEFFICIENT OF VARIATION 13.4 (11.5-15.0); RED BLOOD CELL COUNT(AUTO) 3.21 MIL/uL (4.0-5.2); WHITE BLOOD COUNT (AUTO) 9.7 K/uL (4.3-11.0)
--- NOTE | 2017-03-07 07:30 | NUR ---
RECEIVED PT. AWAKE,CONFUSED,APPEARS COMFORTABLE.NO COMPLAINTS.VS STABLE.
[2017-03-07 07:53] LABS: POTASSIUM 4.3 mmol/L (3.5-5.1)
[2017-03-07 08:00] VITALS: BP 114/43
[2017-03-07] MEDS: NUTREN PULMONARY 1,000 ML BAG GT PRN (08:03)
--- NOTE | 2017-03-07 08:30 | NUR ---
TUBE FEEDING HOOKED UP NO BAG AVAILABLE TILL NOW.
--- NOTE | 2017-03-07 10:30 | NUR ---
REMAINS IN ISOLATION.SIDE RAILS UP,COOPERATIVE.
[2017-03-07] MEDS: DIVALPROEX SODIUM 125 MG CAP.SPRINK GT SCH ×2 (10:53→19:07)
[2017-03-07] MEDS: PANTOPRAZOLE 40 MG/PACK PACK GT SCH (10:53)
[2017-03-07] MEDS: LACTOBACILLUS RHAMNOSUS GG 1 EACH CAP.SPRINK GT SCH ×2 (10:54→19:08)
[2017-03-07] MEDS: MIDODRINE HCL (5MG) 5 MG TABLET GT SCH ×2 (10:54→19:11)
[2017-03-07] MEDS: HALOPERIDOL 1 MG TABLET GT SCH ×2 (10:54→19:07)
[2017-03-07] MEDS: CITALOPRAM HYDROBROMIDE 10 MG TABLET GT SCH (10:55)
[2017-03-07] MEDS: AMANTADINE HCL 100 MG CAPSULE GT SCH ×2 (10:55→19:08)
[2017-03-07] MEDS: SULFAMETH/TRIMETH 800/160 MG 1 UDTAB TABLET PO SCH ×2 (11:00→21:15)
[2017-03-07 16:00] VITALS: BP 106/32
--- NOTE | 2017-03-07 16:30 | NUR ---
dr. van notified of recent report of vre in pt,s urine.
[2017-03-07 20:00] VITALS: BP 121/36
[2017-03-07] MEDS: ENOXAPARIN SODIUM 40 MG/0.4 ML DISP.SYRIN SQ SCH (21:15)
--- NOTE | 2017-03-07 21:48 | NUR ---
MS RN NOTES RECEIVED PT IN ROOM. AWAKE. RESPONDS TO TACTILE STIMULI. RESPIRATION EVEN AND UNLABORED. NO SOB. NO COMPLAIN OF PAIN/DISCOMFORT NOTED. WITH IVF PATENT AND INTACT. GTF INFUSING WELL. NO ACUTE DISTRESS NOTED. KEPT CLEAN AND DRY AT ALL TIMES. BED IN LOW AND LOCKED POSITION. SIDERAILS UPX2. CALL LIGHT WITHIN REACH. WILL CONTINUE TO MONITOR FOR SAFETY.
[2017-03-08] MEDS: NUTREN PULMONARY 1,000 ML BAG GT PRN (04:07)
--- NOTE | 2017-03-08 06:22 | NUR ---
MS RN NOTES PT IN ROOM. AWAKE. RESPIRATION EVEN AND UNLABORED. NO SOB. NO COMPLAIN OF PAIN/DISCOMFORT NOTED. WITH IVF PATENT AND INTACT. GTF INFUSING WELL. NO ACUTE DISTRESS NOTED. KEPT CLEAN AND DRY AT ALL TIMES. BED IN LOW AND LOCKED POSITION. SIDERAILS UPX2. CALL LIGHT WITHIN REACH. WILL ENDORSE TO NEXT SHIFT NURSE FOR CONTINUITY OF CARE.
[2017-03-08 07:15] LABS: BASOPHILS % (AUTO) 0.2 % (0.0-2.0); EOSINOPHILS # (AUTO) 0.6 /CMM (0.0-0.7); EOSINOPHILS % (AUTO) 6.6 % (0.0-6.0); HEMATOCRIT 29 % (33-45); HEMOGLOBIN 9.8 g/dL (11.5-14.8); LYMPHOCYTES % (AUTO) 23.2 % (20.0-44.0); MEAN CORPUSCULAR HEMOGLOBIN 32 PG (26.0-33.0); MEAN CORPUSCULAR HGB CONC 34 g/dl (31.0-36.0); MEAN CORPUSCULAR VOLUME 97 fL (82-100); MONOCYTES # (AUTO) 0.9 /CMM (0.1-1.30); MONOCYTES % (AUTO) 9.7 % (2.0-12.0); NEUTROPHILS # (AUTO) 5.3 /CMM (1.8-8.9); NEUTROPHILS % (AUTO) 60.3 % (43.0-81.0); PLATELET COUNT (AUTO) 170 /CMM (150-450); RDW COEFFICIENT OF VARIATION 13.7 (11.5-15.0); RED BLOOD CELL COUNT(AUTO) 3.05 MIL/uL (4.0-5.2); WHITE BLOOD COUNT (AUTO) 8.8 K/uL (4.3-11.0)
[2017-03-08 07:31] LABS: POTASSIUM 4.6 mmol/L (3.5-5.1)
[2017-03-08 08:00] VITALS: BP 114/60
[2017-03-08] MEDS: DIVALPROEX SODIUM 125 MG CAP.SPRINK GT SCH ×2 (09:53→17:23)
[2017-03-08] MEDS: LINEZOLID 600 MG TABLET PO SCH ×2 (09:53→21:39)
[2017-03-08] MEDS: LACTOBACILLUS RHAMNOSUS GG 1 EACH CAP.SPRINK GT SCH ×2 (09:53→17:24)
[2017-03-08] MEDS: HALOPERIDOL 1 MG TABLET GT SCH ×2 (09:53→17:23)
[2017-03-08] MEDS: CITALOPRAM HYDROBROMIDE 10 MG TABLET GT SCH (09:53)
[2017-03-08] MEDS: AMANTADINE HCL 100 MG CAPSULE GT SCH ×2 (09:54→17:23)
[2017-03-08] MEDS: PANTOPRAZOLE 40 MG/PACK PACK GT SCH (09:55)
[2017-03-08] MEDS: MIDODRINE HCL (5MG) 5 MG TABLET GT SCH ×2 (09:55→17:24)
[2017-03-08 16:00] VITALS: BP 129/49
--- NOTE | 2017-03-08 19:30 | NUR ---
MS RN NOTE RECEIVED PATIENT AWAKE IN BED. CONFUSED. DENIES ANY PAIN OR DISCOMFORT AT THIS TIME. BED LOCKED AND IN LOWEST POSITION. SIDE RAILS UP, CALL LIGHT WITHIN REACH. WILL CONTINUE TO MONITOR.
[2017-03-08 20:00] VITALS: BP 123/51
[2017-03-08] MEDS: ZOLPIDEM TARTRATE 5 MG TABLET GT PRN (21:40)
[2017-03-08] MEDS: ENOXAPARIN SODIUM 40 MG/0.4 ML DISP.SYRIN SQ SCH (21:41)
[2017-03-08 22:00] VITALS: BP 123/51
--- NOTE | 2017-03-09 06:10 | NUR ---
MS RN NOTE PATIENT STABLE. ALL NEEDS MET AND ATTENDED TO. SEIZURE PRECAUTIONS IN PLACE. WILL ENDORSE TO DAY SHIFT FOR BRYSON.
--- NOTE | 2017-03-09 07:00 | NUR ---
MS RN INITIAL NOTES REPORT RECEIVED AT THE BEDSIDE. PATIENT IS SLEEPING. NO SOB OR DISTRESS NOTED AT THIS TIME. PATIENT DOES NOT APPEAR TO BE IN PAIN, NO FACIAL GRIMACE NOTED. GTUBE FEEDING RUNNING. BED IN A LOW POSITION, CALL LIGHT WITHIN PATIENT REACH. WILL CONTINUE TO MONITOR.
[2017-03-09 08:00] VITALS: BP 112/49
[2017-03-09] MEDS: NUTREN PULMONARY 1,000 ML BAG GT PRN (08:08)
[2017-03-09] MEDS: LACTOBACILLUS RHAMNOSUS GG 1 EACH CAP.SPRINK GT SCH (08:09)
[2017-03-09] MEDS: AMANTADINE HCL 100 MG CAPSULE GT SCH (08:09)
[2017-03-09] MEDS: DIVALPROEX SODIUM 125 MG CAP.SPRINK GT SCH (08:09)
[2017-03-09 08:10] VITALS: BP 112/49
[2017-03-09] MEDS: PANTOPRAZOLE 40 MG/PACK PACK GT SCH (08:10)
[2017-03-09] MEDS: LINEZOLID 600 MG TABLET PO SCH (08:10)
[2017-03-09] MEDS: MIDODRINE HCL (5MG) 5 MG TABLET GT SCH (08:10)
[2017-03-09] MEDS: CITALOPRAM HYDROBROMIDE 10 MG TABLET GT SCH (08:10)
[2017-03-09] MEDS: HALOPERIDOL 1 MG TABLET GT SCH (08:10)
[2017-03-09 08:11] LABS: BASOPHILS % (AUTO) 0.4 % (0.0-2.0); EOSINOPHILS # (AUTO) 0.5 /CMM (0.0-0.7); EOSINOPHILS % (AUTO) 5.7 % (0.0-6.0); HEMATOCRIT 31 % (33-45); HEMOGLOBIN 10.5 g/dL (11.5-14.8); LYMPHOCYTES # (AUTO) 2.2 /CMM (0.8-4.8); MEAN CORPUSCULAR HEMOGLOBIN 32 PG (26.0-33.0); MEAN CORPUSCULAR HGB CONC 34 g/dl (31.0-36.0); MEAN CORPUSCULAR VOLUME 96 fL (82-100); MONOCYTES % (AUTO) 10.8 % (2.0-12.0); NEUTROPHILS # (AUTO) 5.3 /CMM (1.8-8.9); NEUTROPHILS % (AUTO) 59.1 % (43.0-81.0); PLATELET COUNT (AUTO) 193 /CMM (150-450); RDW COEFFICIENT OF VARIATION 13.6 (11.5-15.0); RED BLOOD CELL COUNT(AUTO) 3.26 MIL/uL (4.0-5.2); WHITE BLOOD COUNT (AUTO) 9.1 K/uL (4.3-11.0)
[2017-03-09 08:23] LABS: CALCIUM, SERUM 9.2 mg/dL (8.5-10.1); CREATININE 1.1 mg/dL (0.6-1.3); POTASSIUM 4.5 mmol/L (3.5-5.1)
--- NOTE | 2017-03-09 12:54 | NUR ---
MS POT FEEDER NOTE DISCHARGE INSTRUCTIONS GIVEN TO THE PATIENT, BUT PATIENT IS CONFUSED AND ONLY ABLE TO PARTIALLY UNDERSTAND. NO SOB OR DISTRESS NOTED AT THIS TIME. PATIENT DENIES PAIN. DISCHARGE PAPERWORK SIGNED BY TWO RNS PATIENT IS UNABLE TO SIGN. CALLED PATIENT'S PRIMARY DECISION MAKER AND LEFT A MESSAGE THAT THE PATIENT IS BEING DISCHARGED BACK TO [facility]. REPORT CALLED TO MEI AT [facility]. IV DISCONNECTED AND PRESSURE APPLIED. NO BLEEDING NOTED AT THE SITE. PICTURES NOT NEEDED AT THIS TIME THEY WERE TAKEN LESS THAN 24HOURS AGO AND THERE ARE NO CHANGES. PATIENT LEFT IN STABLE CONDITION, ACCOMPANIED BY TWO SECURITY AND PRIVACY CONSULTANT.
== END 2017-03-09 12:55 | DRG 100 ==
LOC: ER 11:01 → MED 14:02 → TELE 14:50 → MED 03-05 09:42
PROVIDERS: ADMIT Family Medicine; ATTEND Family Medicine
DX: G40.909 Epilepsy, unspecified, not intractable, without status epilepticus (principal); E43 Unspecified severe protein-calorie malnutrition; G92 Toxic encephalopathy; N39.0 Urinary tract infection, site not specified; Z68.1 Body mass index [BMI] 19.9 or less, adult; I12.9 Hypertensive chronic kidney disease with stage 1 through stage 4 chronic kidney disease, or unspecified chronic kidney disease; N18.9 Chronic kidney disease, unspecified; R13.10 Dysphagia, unspecified; K21.9 Gastro-esophageal reflux disease without esophagitis; J44.9 Chronic obstructive pulmonary disease, unspecified; F03.90 Unspecified dementia, unspecified severity, without behavioral disturbance, psychotic disturbance, mood disturbance, and anxiety; F17.210 Nicotine dependence, cigarettes, uncomplicated; F20.9 Schizophrenia, unspecified; F32.9 Major depressive disorder, single episode, unspecified; F41.9 Anxiety disorder, unspecified; B95.2 Enterococcus as the cause of diseases classified elsewhere; Z16.21 Resistance to vancomycin; Z79.899 Other long term (current) drug therapy; Z93.1 Gastrostomy status; F39 Unspecified mood [affective] disorder; D64.9 Anemia, unspecified
CPT/HCPCS: 36415; 70450-TC; 71010-TC; 80048-TC; 80061-TC; 80076-TC; 80164-TC; 81000-TC; 83735-TC; 84100-TC; 84443-TC; 84484-TC; 85025-TC; 87081-TC; 87086-TC; 87186-TC; 95819-TC; A4606; J1650; Z7610

== ENCOUNTER 2017-04-02 09:47 | Inpatient (IN) | payer MEDICARE, MEDICAID ==
[~2017-04-02] VITALS: Ht 162.6 cm; Wt 46.7 kg
[~2017-04-02 09:47] MED LIST changes: +ACET-868 GT; -ACET-868 PO; +ACET325T53 GT; -ACET325T53 PO; +AMAN100T GT; -AMAN100T PO; +DIVA125C GT; -DIVA125C PO; +HALO1TAB5 GT; -HALO1TAB5 PO; +HYDR-552 GT; -HYDR-552 PO; +LORA0.5T GT; -LORA0.5T PO; +MAG30ORA GT; -MAG30ORA PO; +MAGN400O6 GT; -MAGN400O6 PO; +MIDO5TAB GT; -MIDO5TAB PO
[2017-04-02] MEDS ORDERED: PIPERACILLIN /TAZOBACTAM 3.375 G in IV D5W 50 ML IV ONE (10:00)
[2017-04-02] MEDS ORDERED: ACETAMINOPHEN 650 MG/SUPP.RECT RC ONE (10:00)
[2017-04-02] MEDS ORDERED: IV NS 0.9% 1,000 ML BAG IV ONE (10:00)
--- NOTE | 2017-04-02 10:00 | NUR ---
DANIAL FROM [facility] DT FEVER. PATIENT IS ALERT, HOWEVER, PATIENT IS NO VERBAL. APPEARS IN NO APPARENT DISTRESS, RESPIRAITON EVEN AND UNLABORED. PATIENT ON ROOM AIR. NO EVIDENCE OF PAIN NOTED,. GT NOTED AND CLAMPED.SKIN IS WARM TO TOUCH AND NON DIAPHORETIC,. TEMP 100.2. IV ACCESSED-- BLOOD SAMPLE SENT TO LAB. CONNECTED PT TO TELE MONITOTR
[2017-04-02] MEDS ORDERED: IV NS 0.9% 1,000 ML ONE (10:01)
[2017-04-02] MEDS ORDERED: IV SET PRIMARY PUMP SET 1 EA INFUS.SET MC ONE ×2 (10:01→13:44)
[2017-04-02 10:06] LABS: BASOPHILS # (AUTO) 0.1 /CMM (0.0-0.2); BASOPHILS % (AUTO) 0.6 % (0.0-2.0); EOSINOPHILS % (AUTO) 4.7 % (0.0-6.0); HEMATOCRIT 32 % (33-45); HEMOGLOBIN 10.8 g/dL (11.5-14.8); LYMPHOCYTES # (AUTO) 1.8 /CMM (0.8-4.8); LYMPHOCYTES % (AUTO) 8.7 % (20.0-44.0); MEAN CORPUSCULAR HEMOGLOBIN 33 PG (26.0-33.0); MEAN CORPUSCULAR HGB CONC 34 g/dl (31.0-36.0); MEAN CORPUSCULAR VOLUME 98 fL (82-100); MONOCYTES # (AUTO) 1.8 /CMM (0.1-1.30); MONOCYTES % (AUTO) 8.5 % (2.0-12.0); NEUTROPHILS # (AUTO) 16.2 /CMM (1.8-8.9); NEUTROPHILS % (AUTO) 77.5 % (43.0-81.0); PLATELET COUNT (AUTO) 196 /CMM (150-450); RDW COEFFICIENT OF VARIATION 15.2 (11.5-15.0); RED BLOOD CELL COUNT(AUTO) 3.29 MIL/uL (4.0-5.2); WHITE BLOOD COUNT (AUTO) 20.9 K/uL (4.3-11.0)
[2017-04-02] MEDS ORDERED: ACETAMINOPHEN 650 MG/20.3 ML UDC ONE (10:08)
[2017-04-02 10:10] LABS: APPEARANCE,URINE Slightly Cloudy (CLEAR); BILIRUBIN,URINE Negative (NEGATIVE); BLOOD, URINE Trace-intact Ery/uL (NEGATIVE); COLOR,URINE Yellow (YELLOW); KETONES,URINE Negative (NEGATIVE); LEUKOCYTE ESTERASE ,URINE Large (NEGATIVE); NITRITE, URINE Positive (NEGATIVE); PH,URINE 5.5 (5.0-8.0); PROTEIN,URINE 30 mg/dl (NEGATIVE); UGLUCOSE Negative (NEGATIVE); UROBILINOGEN,URINE 0.2 EU/dL (0.2)
[2017-04-02 10:16] LABS: CALCIUM, SERUM 9.8 mg/dL (8.5-10.1); CARBON DIOXIDE 34 mmol/L (21-32); CHLORIDE 108 mmol/L (98-107); CREATININE 1.6 mg/dL (0.6-1.3); GLUCOSE 97 mg/dL (74-106); POTASSIUM 4.4 mmol/L (3.5-5.1); SODIUM SERUM 148 mmol/L (136-145); UREA NITROGEN, BLOOD 46 mg/dL (7-18)
[2017-04-02 10:19] LABS: BACTERIA,URINE Rare /HPF (None Seen); SQUAMOUS EPITHELIAL CELL,UR Moderate /HPF (None Seen)
[2017-04-02 10:20] LABS: WBC,URINE 51-80 /HPF (0-3)
[2017-04-02 10:21] LABS: INR 1.06 (0.87-1.13)
[2017-04-02 10:24] LABS: TROPONIN I < 0.017 ng/mL (0.00-0.056)
[2017-04-02 10:28] LABS: ALANINE AMINOTRANSFERASE 16 U/L (12-78); ALBUMIN 3.2 g/dL (3.4-5.0); ALKALINE PHOSPHATASE 110 U/L (46-116); ASPARTATE AMINOTRANSFERASE 17 U/L (15-37); BILIRUBIN,DIRECT 0.1 mg/dL (0.0-0.2); BILIRUBIN,TOTAL 0.4 mg/dL (0.2-1.0); TOTAL PROTEIN, SERUM 8.2 g/dL (6.4-8.2)
[2017-04-02] MEDS ORDERED: AMIN30LI4 GT (10:28)
[2017-04-02] MEDS ORDERED: VITA1TAB56 GT (10:28)
[2017-04-02] MEDS ORDERED: ACID1TAB12 GT (10:28)
[2017-04-02] MEDS ORDERED: ASCO500S2 GT (10:28)
[2017-04-02] MEDS ORDERED: MULT-659 GT (10:28)
[2017-04-02] MEDS ORDERED: ZINC220C8 GT (10:28)
[2017-04-02] MEDS ORDERED: ESOM40SU GT (10:28)
[2017-04-02] MEDS ORDERED: ACETAMINOPHEN 160 MG/5 ML PO ONE (10:30)
--- NOTE | 2017-04-02 11:14 | NUR ---
CAN GO TO 325-1
--- NOTE | 2017-04-02 11:17 | NUR ---
PANEL CALL PLACED, AWAITING CALL BACK
--- NOTE | 2017-04-02 12:28 | NUR ---
UNABLE TO GIVE REPORT AT THIS TIME NURSE ASSIGNED IS ON A LUNCH BREAK.
[2017-04-02] MEDS ORDERED: Z GUARD REMEDY 2 OZ OINT TP PRN (12:30)
[2017-04-02] MEDS ORDERED: ACETAMINOPHEN 325 MG TABLET PO PRN (12:30)
[2017-04-02] MEDS ORDERED: ALBUTEROL FS 2.5 MG/3 ML VIAL.NEB IH PRN (12:30)
[2017-04-02] MEDS ORDERED: ONDANSETRON HCL/PF 4 MG/2 ML VIAL IVP PRN (12:30)
--- NOTE | 2017-04-02 12:59 | NUR ---
REPORT GIVEN TO DVEON MARTE FOR FOR TELE ROOM 325.
[2017-04-02] MEDS ORDERED: [UNRECOGNIZED DRUG - CODE] GT (13:00)
[2017-04-02] MEDS ORDERED: MEROPENEM 500 MG in IV NS 0.9% 50 ML IV SCH ×2 (13:00→20:30)
--- NOTE | 2017-04-02 13:10 | NUR ---
CHIEF I DISPATCHERFRANCHISE FIELD CONSULTANT NOTE PATIENT IS ALERT AND ORIENTED x1. NO FACIAL GRIMACING NOTED FOR PAIN. IV INTACT AND PATENT NO REDNESS OR SWELLING NOTED. RESPONDS TO NAME ONLY AND SIMPLE COMMANDS. CALL LIGHT WITHIN REACH. SAFETY MEASURES IMPLEMENTED. NO BELONGINGS WITH PATIENT. PATIENT CAME FROM [facility]. SKIN PICTURES TAKEN AND IN CHART. RECEIVED REPORT FROM ROSANNA BEY. BED ALARM ON. G-TUBE INTACT AND PATENT WITH ABDOMINAL BINDER IN PLACE. WILL CALL INSIDE SALES PROFESSIONAL FOR TUBE FEEDING. WILL CONTINUE TO MONITOR
[2017-04-02] MEDS ORDERED: SECONDARY IV SET 1 EA INFUS.SET MC ONE ×2 (13:44→20:20)
[2017-04-02] MEDS: MEROPENEM 500 MG in IV NS 0.9% 50 ML IV SCH (13:51)
[2017-04-02] MEDS: ENOXAPARIN SODIUM 30 MG/0.3 ML DISP.SYRIN SQ SCH (13:52)
[2017-04-02] MEDS: IV 1/2NS 1000 ML 1,000 ML IV PRN (13:52)
[2017-04-02 15:59] VITALS: BP 108/57
[2017-04-02] MEDS: AMANTADINE HCL 100 MG CAPSULE GT SCH (16:45)
[2017-04-02] MEDS: DIVALPROEX SODIUM 125 MG CAP.SPRINK GT SCH (16:45)
[2017-04-02] MEDS: ACIDOPHILUS/BULGARICUS 1 EACH TAB.CHEW GT SCH (16:45)
[2017-04-02] MEDS: HALOPERIDOL 1 MG TABLET GT SCH (16:45)
--- NOTE | 2017-04-02 18:39 | NUR ---
BRUSHER WARP CLOSING NOTE PATIENT IS ALERT AND ORIENTED x1, RESPONDS TO NAME AND SIMPLE COMMANDS. CALL LIGHT WITHIN REACH AT ALL TIMES. SAFETY MEASURES IMPLEMENTED. IV INTACT AND PATENT NO REDNESS OR SWELLING NOTED. G-TUBE SITE INTACT AND PATENT, NO REDNESS OR SWELLING NOTED, ABDOMINAL BINDER IN PLACE. FIBERSOURCE AT 45 ML/HR. ALL DUE MEDICATIONS GIVEN ORDERED. BED ALARM ON. WILL ENDORSE TO DRILL PRESSER NURSE
--- NOTE | 2017-04-02 19:40 | NUR ---
DIESEL SCOOP OPERATOR NOTE RECEIVED PATIENT FROM DAY SHIFT, PATIENT IS ALERT AND ORIENTEDX1, LOOKS CONFUSED, NO S/S OF RESPIRATORY DISTRESS AND FACIAL GRIMACE NOTED. IV ON LEFT AC IS PATENT AND INTACT, FLUID IS RUNNING. TELE MONITOR SR 82. SRX2, BED IN LOW POSITION, CALL LIGHT WITHIN REACH, WILL CONTINUE TO MONITOR PATIENT.
[2017-04-02 20:00] VITALS: BP 115/67
[2017-04-02] MEDS: LINEZOLID RTU BAG 600 MG in PREMIX 1 EA IV SCH (20:28)
[2017-04-03 00:36] VITALS: BP 122/69
[2017-04-03] MEDS: MEROPENEM 500 MG in IV NS 0.9% 50 ML IV SCH ×3 (00:36→20:33)
--- NOTE | 2017-04-03 00:38 | NUR ---
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 NOTIFIED NEREIDAG RN, AND PUT AN ISOLATION SIGN AND THE CART FOR PRECAUTION.
[2017-04-03 04:45] VITALS: BP 119/67
[2017-04-03] MEDS: IV 1/2NS 1000 ML 1,000 ML IV PRN (05:45)
--- NOTE | 2017-04-03 06:44 | NUR ---
COORDINATE MEASURING MACHINE PROGRAMMER NOTE NO CHANGE OF CONDITION THROUGHOUT THE CUSTOMS ENTRY CLERK, NO S/S OF RESPIRATORY DISTRESS AND NO FACIAL GRIMACE NOTED. IV IS PATENT AND INTACT, FLUID IS RUNNING. TELE MONITOR SR WITH PAC 61. WILL ENDORSE TO DAY SHIFT NURSE FOR BRYSON.
[2017-04-03 06:56] VITALS: BP 120/69
--- NOTE | 2017-04-03 07:18 | NUR ---
PRINT DESIGNER NOTES RECEIVED PATIENT AWAKE IN BED IN NO ACUTE SIGNS OF DISTRESS. ALERT AND ORIENTED X1, NO SIGNS OF DISCOMFORTS NOTED. ON ROOM AIR, BREATHING EVEN WITH NO SOB NOTED. ON TELE-MONITORING WITH CURRENT READING OF SR AND HR OF 82. IV ACCESS ON LEFT AC PATENT AND INTACT, IVF OF 1/2 NS INFUSING WELL AT 75ML/HR, NO S/S OF INFILTRATION NOTED. G-TUBE FEEDING OF FIBERSOURCE IN PROGRESS AT 45ML/HR, TOLERATING WELL. ASPIRATION PRECAUTIONS MAINTAINED. BED IN LOW POSITION, LOCKED W/ SIDE-RAILS UP X2, CALL LIGHT WITHIN REACH. ALL SAFETY PRECAUTIONS MAINTAINED. WILL CONTINUE TO MONITOR ACCORDINGLY.
[2017-04-03 07:19] LABS: BASOPHILS # (AUTO) 0.1 /CMM (0.0-0.2); BASOPHILS % (AUTO) 0.7 % (0.0-2.0); EOSINOPHILS # (AUTO) 1.6 /CMM (0.0-0.7); HEMATOCRIT 28 % (33-45); HEMOGLOBIN 9.3 g/dL (11.5-14.8); LYMPHOCYTES # (AUTO) 1.9 /CMM (0.8-4.8); LYMPHOCYTES % (AUTO) 14.4 % (20.0-44.0); MEAN CORPUSCULAR HEMOGLOBIN 33 PG (26.0-33.0); MEAN CORPUSCULAR HGB CONC 34 g/dl (31.0-36.0); MEAN CORPUSCULAR VOLUME 99 fL (82-100); MONOCYTES # (AUTO) 1.1 /CMM (0.1-1.30); MONOCYTES % (AUTO) 8.6 % (2.0-12.0); NEUTROPHILS # (AUTO) 8.4 /CMM (1.8-8.9); NEUTROPHILS % (AUTO) 64.3 % (43.0-81.0); PLATELET COUNT (AUTO) 148 /CMM (150-450); WHITE BLOOD COUNT (AUTO) 13.1 K/uL (4.3-11.0)
[2017-04-03 07:25] LABS: CALCIUM, SERUM 9.3 mg/dL (8.5-10.1); CREATININE 1.1 mg/dL (0.6-1.3); MAGNESIUM 2.1 mg/dL (1.8-2.4); PHOSPHORUS 3.5 mg/dL (2.5-4.9)
[2017-04-03 07:33] LABS: THYROID STIMULATING HORMONE 0.765 uIU/mL (0.358-3.74)
[2017-04-03 08:00] VITALS: BP 120/69
[2017-04-03] MEDS: ACIDOPHILUS/BULGARICUS 1 EACH TAB.CHEW GT SCH ×2 (10:57→18:03)
[2017-04-03] MEDS: HALOPERIDOL 1 MG TABLET GT SCH ×2 (10:57→18:02)
[2017-04-03] MEDS: AMANTADINE HCL 100 MG CAPSULE GT SCH ×2 (10:58→18:03)
[2017-04-03] MEDS: PANTOPRAZOLE 40 MG VIAL IV SCH (10:58)
[2017-04-03] MEDS: DIVALPROEX SODIUM 125 MG CAP.SPRINK GT SCH ×2 (10:58→18:02)
[2017-04-03] MEDS: LINEZOLID RTU BAG 600 MG in PREMIX 1 EA IV SCH (11:00)
[2017-04-03] MEDS: ENOXAPARIN SODIUM 30 MG/0.3 ML DISP.SYRIN SQ SCH (11:02)
[2017-04-03] MEDS ORDERED: SECONDARY IV SET 1 EA INFUS.SET MC ONE (11:05)
[2017-04-03] MEDS ORDERED: MEROPENEM 500 MG in IV NS 0.9% 50 ML IV SCH (11:39)
--- NOTE | 2017-04-03 12:46 | NUR ---
RN NOTES PATIENT DISCONTINUED FROM TELE-MONITORING, NO SIGNS OF CHEST PAIN NOR NAUSEA AND VOMITING. WILL CONTINUE TO MONITOR.
[2017-04-03 16:00] VITALS: BP_SYST 133; BP_DIAS 70; BP_DIAS 76
--- NOTE | 2017-04-03 17:06 | NUR ---
RN NOTES PATIENT POSITIVE FOR MRSA OF NARES, CHARGE NURSE AND MD MADE AWARE. CONTACT ISOLATION ENFORCED. PATIENT TO START ON ABX BACTROBAN OINTMENT TO BOTH NOSTRILS BID. WILL CONTINUE TO MONITOR
[2017-04-03] MEDS: FIBERSOURCE HN 1,000 ML BOTTLE GT PRN (18:25)
--- NOTE | 2017-04-03 19:14 | NUR ---
MS RN CLOSING NOTES PATIENT IN BED AT MODERATE HIGH BACKREST POSITION. ALERT AND ORIENTED X1, NO SIGNIFICANT CHANGES NOTED THROUGHOUT THE DAY. ALL NEEDS/CARE PROVIDED WELL. CONTACT PRECAUTIONS MAINTAINED. ON ROOM AIR, BREATHING EVEN WITH NO SOB NOTED. IV ACCESS ON LEFT AC PATENT AND INTACT, IVF OF 1/2 NS INFUSING WELL AT 75ML/HR, NO S/S OF INFILTRATION NOTED. G-TUBE FEEDING OF FIBERSOURCE IN PROGRESS AT 50ML/HR, TOLERATING WELL. ASPIRATION PRECAUTIONS MAINTAINED. BED IN LOW POSITION, LOCKED W/ SIDE-RAILS UP X2, CALL LIGHT WITHIN REACH. ALL SAFETY PRECAUTIONS MAINTAINED. ENDORSED TO BOILER ERECTOR FOR CONTINUITY OF CARE.
--- NOTE | 2017-04-03 19:30 | NUR ---
JEWELRY MAKING INSTRUCTOR NOTE RECEIVED PATIENT FROM DAY SHIFT, PATIENT IS ALERT, LOOKS CONFUSED, NO S/S OF RESPIRATORY DISTRESS OR FACIAL GRIMACE PRESENT AT THIS TIME. IV ON LEFT FA IS PATENT AND INTACT, FLUID IS RUNNING. G TUBE IS PATENT AND INTACT, 10 ML OF RESIDUAL TOLERATING WELL. SRX2, BED IN LOW POSITION, CALL LIGHT WITHIN REACH, WILL CONTINUE TO MONITOR PATIENT. Addendum: 04/03/17 at 2129 by BEBE SANFORD RN MS RN NOTE
[2017-04-03 20:32] VITALS: BP 135/49
[2017-04-03] MEDS: MUPIROCIN OINT 2% 22 GM TUBE SCH (20:33)
[2017-04-04] MEDS: IV 1/2NS 1000 ML 1,000 ML IV PRN (00:54)
[2017-04-04] MEDS: MEROPENEM 500 MG in IV NS 0.9% 50 ML IV SCH ×2 (04:58→12:53)
[2017-04-04 06:30] LABS: BASOPHILS # (AUTO) 0.1 /CMM (0.0-0.2); BASOPHILS % (AUTO) 0.5 % (0.0-2.0); EOSINOPHILS # (AUTO) 0.7 /CMM (0.0-0.7); EOSINOPHILS % (AUTO) 6.4 % (0.0-6.0); HEMATOCRIT 28 % (33-45); HEMOGLOBIN 9.3 g/dL (11.5-14.8); LYMPHOCYTES # (AUTO) 1.9 /CMM (0.8-4.8); LYMPHOCYTES % (AUTO) 16.3 % (20.0-44.0); MEAN CORPUSCULAR HEMOGLOBIN 33 PG (26.0-33.0); MEAN CORPUSCULAR HGB CONC 33 g/dl (31.0-36.0); MEAN CORPUSCULAR VOLUME 99 fL (82-100); MONOCYTES # (AUTO) 1.1 /CMM (0.1-1.30); MONOCYTES % (AUTO) 9.3 % (2.0-12.0); NEUTROPHILS # (AUTO) 7.9 /CMM (1.8-8.9); NEUTROPHILS % (AUTO) 67.5 % (43.0-81.0); PLATELET COUNT (AUTO) 157 /CMM (150-450); RDW COEFFICIENT OF VARIATION 15.9 (11.5-15.0); RED BLOOD CELL COUNT(AUTO) 2.85 MIL/uL (4.0-5.2); WHITE BLOOD COUNT (AUTO) 11.7 K/uL (4.3-11.0)
[2017-04-04 06:49] LABS: CALCIUM, SERUM 9.6 mg/dL (8.5-10.1); CREATININE 1.1 mg/dL (0.6-1.3); MAGNESIUM 1.9 mg/dL (1.8-2.4); PHOSPHORUS 2.9 mg/dL (2.5-4.9); POTASSIUM 5.1 mmol/L (3.5-5.1)
--- NOTE | 2017-04-04 07:11 | NUR ---
MS RN NOTE PATIENT GETS CONFUSED AND HALLUCINATING, KEEPS TRYING TO GET OUT OF THE BED, TRYING TO GRAB THINGS. CHG RN NOTIFIED ABOUT HER BEHAVIOR. IV ON LEFT AC IS PATENT AND INTACT, G TUBE IS RUNNING, WILL ENDORSE TO DAY SHIFT FOR BRYSON.
--- NOTE | 2017-04-04 07:20 | NUR ---
RN MS NOTES PATIENT IN BED, ALERT AND ORIENTED X1, VERBALLY CONFUSED, HOB ELEVATED, ON GTUBE FEEDING AND INFUSING WELL, IVF ALSO INFUSING, IV PATENT AND INTACT, NO S/SX OF INFILTRATION, ALL NEEDS ATTENDED, CALL LIGHT WITHIN REACH, WILL CONTINUE TO MONITOR.
[2017-04-04 08:00] VITALS: BP 145/64
[2017-04-04] MEDS: ACIDOPHILUS/BULGARICUS 1 EACH TAB.CHEW GT SCH ×2 (08:58→16:27)
[2017-04-04] MEDS: AMANTADINE HCL 100 MG CAPSULE GT SCH ×2 (08:58→16:27)
[2017-04-04] MEDS: HALOPERIDOL 1 MG TABLET GT SCH ×2 (08:58→16:27)
[2017-04-04] MEDS: DIVALPROEX SODIUM 125 MG CAP.SPRINK GT SCH ×2 (08:58→16:27)
[2017-04-04] MEDS: PANTOPRAZOLE 40 MG VIAL IV SCH (08:58)
[2017-04-04] MEDS: MUPIROCIN OINT 2% 22 GM TUBE SCH ×2 (08:59→22:09)
[2017-04-04] MEDS: ENOXAPARIN SODIUM 30 MG/0.3 ML DISP.SYRIN SQ SCH (08:59)
[2017-04-04] MEDS: IV D5W 1,000 ML IV PRN ×2 (11:27→22:11)
[2017-04-04] MEDS: LEVOFLOXACIN (500MG) 500 MG TABLET PO SCH (14:33)
--- NOTE | 2017-04-04 18:57 | NUR ---
RN MS NOTES PATIENT IN BED, ALERT AND ORIENTED X1, CONFUSED, NO SOB NOR DISTRESS NOTED, NO SIGNIFICANT CHANGE THIS SHIFT, KEPT SKIN CLEAN AND DRY, TURNED AND REPOSITIONED, SITTER AT BEDSIDE, IVF ONGOING AND TOLERATING WELL, GTF ONGOING, ALL NEEDS ATTENDED AND MET, CALL LIGHT WITHIN REACH, WILL ENDORSE TO APPLIANCE PAINTER AND REFINISHER.
[2017-04-04 20:00] VITALS: BP 114/58
--- NOTE | 2017-04-04 20:02 | NUR ---
MS/RN RECEIVE PATIENT AWAKE, ALERT, ORIENTED TO NAME ONLY, NO C/O PAIN, NO SIGNS OF DISTRESS NOTED, BILATERAL UPPER EXTREMITIES SHAKING, GT FEEDING INFUSING, NO RESIDUAL NOTE, HOB ELEVATED, CALL LIGHT IN REACH. FALL PRECAUTION. WILL MONITOR.
[2017-04-04] MEDS: FIBERSOURCE HN 1,000 ML BOTTLE GT PRN (22:08)
--- NOTE | 2017-04-05 07:06 | NUR ---
MS/RN AWAKE, COMFORTABLE, NO DISTRESS NOTED, EPISODES OF SHAKINESS AND RESTLESSNESS AND AGITATION, ON AND OFF SLEEP THROUGHOUT SHIFT. ALL NEEDS ATTENDED AT THIS TIME. WILL CONTINUE TO MONITOR.
[2017-04-05 07:50] LABS: BASOPHILS % (AUTO) 0.2 % (0.0-2.0); EOSINOPHILS # (AUTO) 0.4 /CMM (0.0-0.7); EOSINOPHILS % (AUTO) 3.3 % (0.0-6.0); HEMATOCRIT 31 % (33-45); HEMOGLOBIN 10.1 g/dL (11.5-14.8); LYMPHOCYTES # (AUTO) 1.6 /CMM (0.8-4.8); LYMPHOCYTES % (AUTO) 14.6 % (20.0-44.0); MEAN CORPUSCULAR HEMOGLOBIN 33 PG (26.0-33.0); MEAN CORPUSCULAR HGB CONC 33 g/dl (31.0-36.0); MEAN CORPUSCULAR VOLUME 99 fL (82-100); NEUTROPHILS # (AUTO) 8.1 /CMM (1.8-8.9); NEUTROPHILS % (AUTO) 72.9 % (43.0-81.0); PLATELET COUNT (AUTO) 173 /CMM (150-450); RED BLOOD CELL COUNT(AUTO) 3.11 MIL/uL (4.0-5.2); WHITE BLOOD COUNT (AUTO) 11.2 K/uL (4.3-11.0)
[2017-04-05 08:00] VITALS: BP_SYST 150; BP_SYST 159; BP_DIAS 63
[2017-04-05 08:11] LABS: CALCIUM, SERUM 9.9 mg/dL (8.5-10.1)
[2017-04-05] MEDS: PANTOPRAZOLE 40 MG VIAL IV SCH (10:15)
[2017-04-05] MEDS: ENOXAPARIN SODIUM 30 MG/0.3 ML DISP.SYRIN SQ SCH (10:15)
[2017-04-05] MEDS: HALOPERIDOL 1 MG TABLET GT SCH ×2 (10:16→16:55)
[2017-04-05] MEDS: AMANTADINE HCL 100 MG CAPSULE GT SCH ×2 (10:16→16:55)
[2017-04-05] MEDS: ACIDOPHILUS/BULGARICUS 1 EACH TAB.CHEW GT SCH ×2 (10:16→16:56)
[2017-04-05] MEDS: DIVALPROEX SODIUM 125 MG CAP.SPRINK GT SCH ×2 (10:17→16:56)
[2017-04-05] MEDS: MUPIROCIN OINT 2% 22 GM TUBE SCH ×2 (10:17→21:02)
[2017-04-05 16:00] VITALS: BP 149/66
[2017-04-05] MEDS: LEVOFLOXACIN (500MG) 500 MG TABLET PO SCH (16:56)
[2017-04-05 20:00] VITALS: BP 151/55
--- NOTE | 2017-04-05 20:52 | NUR ---
RECEIVED PT ALERT TO SELF RESPOINSIVE TO VERBAL AND TACTILE STIMULI. NO SOB NOTED. PERRLA WITH 2MM DILATION. SLUGISH REACTION, INCONTINENT OF BOTH BOWEL AND BLADDER, ABLE TO MOVE ALL EXTREMITIES, WEAK IN STRENGTH. BOWEL SOUNDS ACTIVE ON ALL 4 QUADRANTS. ON TUBE FEEDING OF FIBERSOURCE TOLERATES WELL. WILL CONTINUE TO MONITOR FOR ANY CHANGES. BED IN LOW POSITION CALL LIGHT WITHIN REACH.
[2017-04-05] MEDS: IV D5W 1,000 ML IV PRN (22:38)
--- NOTE | 2017-04-06 01:06 | NUR ---
pts feeding bag changed to complete ordered dose, no ASE noted at this time. pt tolerated feeding. turned and repositioned, danae care implemented bed within reach, bed in low position.
--- NOTE | 2017-04-06 03:08 | NUR ---
pt turned, repositioned, cleaned, good pericare implemented. voided, no BM. PEG tube in place. skin clear and in tact. all needs met, will continue to monitor for any changes.bed in low position call light within reach.
--- NOTE | 2017-04-06 05:16 | NUR ---
alert to self, responds to tactile stimuli, verbally responsive to simple questions, no SOB not in any distress. pt remains total care for assistance with ADL,s remains incontinent of both bowel and bladder. pts urine dark in color, fowl smell not too strong. good pericare implemented PEG patent flushed as indicated. bowel sounds active on all four quadrants. skin remains in tact. pt kept clean and comfortable all needs met, bed in low position caoo Addendum: 04/06/17 at 0520 by IGGY GAO LVN call light within reach bed in low position
[2017-04-06 06:28] LABS: BASOPHILS % (AUTO) 0.3 % (0.0-2.0); EOSINOPHILS # (AUTO) 0.6 /CMM (0.0-0.7); EOSINOPHILS % (AUTO) 6.9 % (0.0-6.0); HEMATOCRIT 33 % (33-45); HEMOGLOBIN 10.7 g/dL (11.5-14.8); LYMPHOCYTES # (AUTO) 2.1 /CMM (0.8-4.8); LYMPHOCYTES % (AUTO) 24.4 % (20.0-44.0); MEAN CORPUSCULAR HEMOGLOBIN 32 PG (26.0-33.0); MEAN CORPUSCULAR HGB CONC 33 g/dl (31.0-36.0); MEAN CORPUSCULAR VOLUME 99 fL (82-100); MONOCYTES % (AUTO) 11.5 % (2.0-12.0); NEUTROPHILS % (AUTO) 56.9 % (43.0-81.0); PLATELET COUNT (AUTO) 170 /CMM (150-450); RDW COEFFICIENT OF VARIATION 15.7 (11.5-15.0); RED BLOOD CELL COUNT(AUTO) 3.29 MIL/uL (4.0-5.2); WHITE BLOOD COUNT (AUTO) 8.8 K/uL (4.3-11.0)
[2017-04-06 07:02] LABS: CALCIUM, SERUM 9.2 mg/dL (8.5-10.1); CREATININE 0.9 mg/dL (0.6-1.3); MAGNESIUM 1.9 mg/dL (1.8-2.4); PHOSPHORUS 3.1 mg/dL (2.5-4.9); POTASSIUM 3.8 mmol/L (3.5-5.1)
--- NOTE | 2017-04-06 08:00 | NUR ---
m/s maintenance supervisor electrical: initial assessment received pt in bed with eyes open, alert to self only with confusion and disorientation to time, place, and situation. reality orientation provided prn. kept comfortable and repositioned with hob elevated. pt tolerating her g-tube feeding. g-tube placement check and patent with no residual obtained. will continue to monitor.
[2017-04-06] MEDS: DIVALPROEX SODIUM 125 MG CAP.SPRINK GT SCH ×2 (08:11→16:46)
[2017-04-06] MEDS: ENOXAPARIN SODIUM 30 MG/0.3 ML DISP.SYRIN SQ SCH (08:11)
[2017-04-06] MEDS: ACIDOPHILUS/BULGARICUS 1 EACH TAB.CHEW GT SCH ×2 (08:11→16:46)
[2017-04-06] MEDS: MUPIROCIN OINT 2% 22 GM TUBE SCH ×2 (08:12→21:51)
[2017-04-06] MEDS: HALOPERIDOL 1 MG TABLET GT SCH ×2 (08:12→16:46)
[2017-04-06] MEDS: AMANTADINE HCL 100 MG CAPSULE GT SCH ×2 (08:12→16:46)
[2017-04-06] MEDS: IV D5W 1,000 ML IV PRN ×2 (08:25→21:51)
[2017-04-06] MEDS: PANTOPRAZOLE 40 MG VIAL IV SCH (08:25)
[2017-04-06 08:29] VITALS: BP 122/62
--- NOTE | 2017-04-06 10:00 | NUR ---
m/s diabetologist: notes am care rendered by staff. kept comfortable, turned and repositioned. hob elevated at least 60 degree. no s/s of aspiration. will continue to monitor.
--- NOTE | 2017-04-06 12:00 | NUR ---
m/s porcelain enamel sprayer: notes kept comfortable, turned and repositioned. hob elevated at least 60 degree. no s/s of aspiration. will continue to monitor.
--- NOTE | 2017-04-06 14:00 | NUR ---
m/s administrative associate: notes afternoon care rendered by staff. kept comfortable, turned and repositioned. hob elevated at least 60 degree. no s/s of aspiration. will continue to monitor.
[2017-04-06 16:00] VITALS: BP_SYST 118; BP_DIAS 62; BP_DIAS 67
--- NOTE | 2017-04-06 16:00 | NUR ---
m/s toxics program officer: notes pt restless m/b climbing out bed. repositioned and kept comfortable. reality orientation provided prn. monitored closely. will monitor.
[2017-04-06] MEDS: LEVOFLOXACIN (500MG) 500 MG TABLET PO SCH (16:46)
--- NOTE | 2017-04-06 18:30 | NUR ---
m/s opener verifier packer customs: notes pt remains restless m/b removing equipment, putting her legs over the siderails. pt remains confused and disoriented. reality orientation provided prn. 1:1 intervention provided. kept pt safe. bed alarm on and repositioned. needs attended. will continue to monitor.
--- NOTE | 2017-04-06 19:30 | NUR ---
MS RN NOTE: PATIENT RESTING IN BED, NO ACUTE DISTRESS NOTED. BREATHING EVEN AND UNLABORED, NO SOB NOTED. G-TUBE IN PLACE INFUSING FIBERSOURCE AT 50 ML/HR, HOB ELEVATED. IV TO LEFT UPPER ARM IN PLACE, INFUSING D5W AT 100 ML/HR. ISOLATION PRECAUTIONS OBSERVED. BED LOCKED AND IN LOWEST POSITION, CALL LIGHT IN REACH. WILL CONTINUE TO MONITOR.
[2017-04-06 20:00] VITALS: BP 111/81
--- NOTE | 2017-04-06 20:30 | NUR ---
MS RN NOTE: PATIENT FOUND ON FLOOR, UNWITNESSED FALL FROM BED. NO VISIBLE BRUISES OR SKIN TEARS. PATIENT DENIES PAIN OR HITTING HEAD. PATIENT ABLE TO MOVE ALL EXTREMITIES WITHOUT DIFFICULTY. PATIENT BACK IN BED WITH BED ALARM ON. WILL CONTACT BONING ROOM WORKER MD. WILL CONTINUE TO MONITOR.
--- NOTE | 2017-04-06 20:45 | NUR ---
MS RN NOTE: SPOKE TO STRUCTURAL STEEL EQUIPMENT ERECTOR MD, DR. EMMANUEL, INFORMED THAT PATIENT HAD AND UNWITNESSED FALL AND NO VISIBLE BRUISING OR SKIN TEARS NOTED. ORDERED FOR A SITTER IF POSSIBLE AND TO TO MONITOR PATIENT STATUS AND IF NOTED WITH ANY CHANGE TO ORDER A CT OF HEAD. WILL CONTINUE TO MONITOR.
[2017-04-07] MEDS: FIBERSOURCE HN 1,000 ML BOTTLE GT PRN (02:18)
--- NOTE | 2017-04-07 03:00 | NUR ---
MS RN NOTE: PATIENT RESTING IN BED, NO ACUTE DISTRESS NOTED. NO CHANGE IN MENTAL STATUS NOTED. BED LOCKED AND IN LOWEST POSITION, WILL CONTINUE TO MONITOR.
--- NOTE | 2017-04-07 06:10 | NUR ---
MS RN NOTE: PATIENT RESTING IN BED, NO ACUTE DISTRESS NOTED. BREATHING EVEN AND UNLABORED, NO SOB NOTED. G-TUBE IN PLACE INFUSING FIBERSOURCE AT 50 ML/HR, HOB ELEVATED. IV TO LEFT UPPER ARM IN PLACE, INFUSING D5W AT 100 ML/HR. NO CHANGE IN MENTAL STATUS NOTED THROUGHOUT SHIFT. ISOLATION PRECAUTIONS OBSERVED. BED LOCKED AND IN LOWEST POSITION, CALL LIGHT IN REACH. WILL ENDORSE TO DAY NURSE TO CONTINUE WITH PLAN OF CARE.
--- NOTE | 2017-04-07 08:00 | NUR ---
m/s internal medicine physician assistant: initial assessment received pt in bed with eyes open, alert to self only with confusion and disorientation to time, place, and situation. reality orientation provided prn. kept comfortable and repositioned with hob elevated. pt tolerating her g-tube feeding. g-tube placement check and patent with no residual obtained. will continue to monitor.
[2017-04-07] MEDS: DIVALPROEX SODIUM 125 MG CAP.SPRINK GT SCH (08:16)
[2017-04-07] MEDS: ACIDOPHILUS/BULGARICUS 1 EACH TAB.CHEW GT SCH (08:16)
[2017-04-07] MEDS: AMANTADINE HCL 100 MG CAPSULE GT SCH (08:17)
[2017-04-07] MEDS: HALOPERIDOL 1 MG TABLET GT SCH (08:17)
[2017-04-07] MEDS: ENOXAPARIN SODIUM 30 MG/0.3 ML DISP.SYRIN SQ SCH (08:17)
[2017-04-07] MEDS: MUPIROCIN OINT 2% 22 GM TUBE SCH (08:27)
[2017-04-07 08:28] VITALS: BP 136/73
--- NOTE | 2017-04-07 10:00 | NUR ---
m/s technical services representative: notes am care rendered by staff. kept comfortable, turned and repositioned. hob elevated at least 60 degree. no s/s of aspiration. will continue to monitor.
--- NOTE | 2017-04-07 11:45 | NUR ---
m/s tax investigator: md visit seen and examined by dr. mane at this time.
--- NOTE | 2017-04-07 12:00 | NUR ---
m/s dextrine mixer: notes cn informed nurse that pt is for discharge back to [facility] and arrangement done already by gonzalo. pt to be picked up between 2:30pm to 3:00pm. pt made aware and reality orientation provided prn.
[2017-04-07] MEDS: PANTOPRAZOLE 40 MG VIAL IV SCH (12:02)
--- NOTE | 2017-04-07 12:35 | NUR ---
m/s business trainer: notes jennifer (public guardian) notified and made aware re: d'c back to [facility] this afternoon, spoke to her over the phone.
--- NOTE | 2017-04-07 12:45 | NUR ---
m/s cargo handler: notes report given to tashia zamora) for continuity of care at [facility].
--- NOTE | 2017-04-07 13:30 | NUR ---
m/s legal specialist: notes received order to d'c pt back to [facility]. order acknowledged. ivf stopped. awaiting for ambulance to hot die picker pt.
[2017-04-07] MEDS: LEVOFLOXACIN (500MG) 500 MG TABLET PO SCH (13:42)
--- NOTE | 2017-04-07 14:20 | NUR ---
m/s scuba instructor: notes med response here and report given to one of the crew. h/l removed with tip intact. g-tube flushed and clamped. pt unable to sign d'c papers due to cognitive impairment. all d'c papers copy given to med response.
--- NOTE | 2017-04-07 14:40 | NUR ---
m/s cow washer: discharged discharged back to [facility] in stable condition with all d'c papers accompanied by 2 med response staff.
== END 2017-04-07 14:42 | DRG 871 ==
LOC: ER 09:49 → TELE 11:35 → MED 04-03 09:49
DX: A41.9 Sepsis, unspecified organism (principal); G92 Toxic encephalopathy; N17.0 Acute kidney failure with tubular necrosis; E43 Unspecified severe protein-calorie malnutrition; N39.0 Urinary tract infection, site not specified; Z68.1 Body mass index [BMI] 19.9 or less, adult; E87.0 Hyperosmolality and hypernatremia; I12.9 Hypertensive chronic kidney disease with stage 1 through stage 4 chronic kidney disease, or unspecified chronic kidney disease; N18.3 Chronic kidney disease, stage 3 (moderate); R65.20 Severe sepsis without septic shock; B96.5 Pseudomonas (aeruginosa) (mallei) (pseudomallei) as the cause of diseases classified elsewhere; F17.210 Nicotine dependence, cigarettes, uncomplicated; J44.9 Chronic obstructive pulmonary disease, unspecified; I70.0 Atherosclerosis of aorta; K21.9 Gastro-esophageal reflux disease without esophagitis; F32.9 Major depressive disorder, single episode, unspecified; R13.10 Dysphagia, unspecified; Z87.440 Personal history of urinary (tract) infections; E86.9 Volume depletion, unspecified; F03.90 Unspecified dementia, unspecified severity, without behavioral disturbance, psychotic disturbance, mood disturbance, and anxiety; D64.9 Anemia, unspecified; R00.1 Bradycardia, unspecified; Z93.1 Gastrostomy status; R56.9 Unspecified convulsions; Z79.899 Other long term (current) drug therapy; F41.9 Anxiety disorder, unspecified; F20.9 Schizophrenia, unspecified
CPT/HCPCS: 36415; 71010-TC; 80048-TC; 80061-TC; 80076-TC; 81000-TC; 83605-TC; 83735-TC; 84100-TC; 84443-TC; 84484-TC; 85025-TC; 85730-TC; 87040-TC; 87081-TC; 87086-TC; 87186-TC; A4216; A4606; C9113; J1650; J2020; J2185; J2543; J3490; J7030; J7060; J7070; Z7610